=== PATIENT | female | born 1945 | race Caucasian/White ===

== ENCOUNTER → 2021-11-13 03:07 | Outpatient (CLI) | payer MEDICARE, OTHER, SELFPAY ==
[2021-11-13 10:49] LABS: SARS-CoV-2 RNA PCR Negative
== END ==
PROVIDERS: PCP Family Medicine; Visit Provider Internal Medicine Cardiovascular Disease
DX: Z01.812 Encounter for preprocedural laboratory examination (principal); Z20.822 Contact with and (suspected) exposure to COVID-19
CPT/HCPCS: C9803; U0003; U0005

== ENCOUNTER 2021-11-16 01:19 | Day surgery (SDC) | payer MEDICARE, OTHER, SELFPAY ==
[2021-11-15 16:49] VITALS: BMI 38.0
[2021-11-16] VITALS (15 sets, daily range): BP systolic 134–176; BP diastolic 68–97; PULSE 83–92; RESP 13–20; TEMP 36.2; O2SAT 97–100; BMI 37.7
--- NOTE | 2021-11-16 10:10 | WPDHPUPDATE1 ---
History and Physical Update Update Date/Time: 11/16/21 10:10 Patient was hospitalized recently with multiple bilateral acute small strokes. Carotid ultrasound showed only mild plaque. I was concerned that she may have aortic plaque or aortic fibrillation causing her multiple strokes. We tried outpatient monitoring but she was not able to tolerate the electrodes. I have recommended a transesophageal echo and, if that shows no etiology, and implantable loop recorder. History and Physical has been reviewed, including an updated exam of the patient. There are NO changes in the patient's condition. Risks, benefits, and alternatives have been discussed and questions answered. Patient agrees to proceed with procedure.
--- NOTE | 2021-11-16 10:12 | WPDMODSED ---
Moderate Sedation Note-Pt Data Patient Data Diagnosis: Patient with mild mitral and aortic stenosis as well as HTN who was hospitalized recently with multiple bilateral acute small strokes. Carotid ultrasound showed only mild plaque. I was concerned that she may have aortic plaque or aortic fibrillation causing her multiple strokes. We tried outpatient monitoring but she was not able to tolerate the electrodes. I have recommended a transesophageal echo and, if that shows no etiology, and implantable loop recorder. Present Complaint: Bilateral strokes Procedure to be performed/Plan: Conscious sedation, transesophageal echo, possible implantable loop recorder Allergies Allergy/AdvReac Type Severity Reaction Status Date / Time adhesive tape Allergy Mild Rash Verified 11/16/21 10:56 cortex Eucommiae AdvReac Gastrointestinal Verified 11/16/21 10:58 Upset Home Medications Medication Instructions Recorded Confirmed Type blood sugar diagnostic #100 each 06/24/19 11/15/21 Rx acetaminophen 500 mg tablet 500 mg PO BID tablet 08/18/20 11/15/21 History ascorbic acid (vitamin C) 1,000 mg 1 g PO BID tablet 08/18/20 11/15/21 History tablet calcium carbonate 600 mg calcium 600 mg PO BID tablet 08/18/20 11/15/21 History (1,500 mg) tablet chondroitin sulfate 600 1 tablet PO BID tablet 08/18/20 11/15/21 History mg-turmeric 125 mg tablet glucosamine HCl 1,500 mg tablet 1,500 mg PO BID tablet 08/18/20 11/15/21 History zinc acetate 25 mg (zinc) capsule 25 mg PO BID cap 08/18/20 11/15/21 History pen needle, diabetic 32 gauge x See Rx Instructions .ROUTE 12/29/20 11/15/21 Rx 32 .COMPLEX #100 syringe metoprolol succinate 50 mg 25 mg PO DAILY tablet 04/27/21 11/15/21 History tablet,extended release 24 hr potassium gluconate 595 mg (99 mg) See Rx Instructions .ROUTE 05/18/21 11/15/21 Rx tablet .COMPLEX #45 tablet clopidogrel 75 mg tablet 75 mg PO DAILY 10/23/21 11/15/21 History simvastatin 40 mg tablet 40 mg PO DAILY 10/23/21 11/15/21 History tramadol 50 mg tablet 50 mg PO Q6H PRN 10/23/21 11/15/21 History losartan 50 mg tablet 25 mg PO BID tablet 10/26/21 11/15/21 History calcium-vitamin D3 See Rx Instructions .ROUTE .COMPLEX 11/15/21 11/15/21 History insulin glargine [Lantus Solostar 8 unit SUBCUT DAILY 11/15/21 11/15/21 History U-100 Insulin] Sedation/Anesthesia: No previous sedation/anesthesia problems (including family history). FOR[facility]LY [facility] Past Medical History Medical History (Updated 11/16/21 @ 10:14 by Anna Barillas MD) Aortic stenosis Cataracts, bilateral CVA (cerebral vascular accident) Hospitalized at [facility] 10/20/2021 with confusion and dizziness. MRI showed multiple acute bilateral lacunar infarcts. Carotid ultrasound showed less than 50% stenosis, mild plaque. Diabetes Endometrial cancer Essential hypertension (Unknown) GERD (gastroesophageal reflux disease) Hyperlipidemia, unspecified Iron deficiency anemia Mitral stenosis Normal colonoscopy (~2015) Vitamin B12 deficiency Vitamin D deficiency Surgical History Surgical History History of hysterectomy for cancer Hx of tonsillectomy Family History Family History Father Patient's father is in good health Hypertension Sibling Patient's sister is in good health Patient's brother is in good health Mother Family history of malignant neoplasm of breast Son Depression Social History Social History (Updated 11/16/21 @ 10:15 by Anna Barillas MD) Social History: 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 , 1 son and 1 daughter Smoking status: Never smoker Second hand tobacco smoke exposure: Yes (at work) Alcohol intake: former Substance use: never Substance use type: does not use Living arrangements: alone Gender identity (if verbalized by the patient):
--- NOTE | 2021-11-16 12:00 | SUR.OPER ---
see moderate sedation form for sedation given - total 3mg versed and 50mcg fentanyl for VIVIANA procedure.
--- NOTE | 2021-11-16 12:29 | PM.OP ---
Procedure Note - Brief Procedure Note - Brief Date of procedure: 11/16/21 Pre-op diagnosis: tia Post-op diagnosis: Same Procedure performed: Transesophageal ECHO Insertion of a Biotronik loop recorder Description of procedure: Unremarkable procedures Anesthesia: local (And conscious sedation) Surgeon: Anna Barillas MD Condition: Stable Disposition: Observation Findings: Transesophageal echo showed no thrombus, significant aortic atheroma, or PFO. However there was a small mobile mass on the aortic valve which may be a vegetation. Checking blood cultures etc.
--- NOTE | 2021-11-16 12:30 | WPDTEECHO ---
VIVIANA TransEsophageal Echocardiogram Date of procedure: 11/16/21 Procedure Type: Transesophageal echo Diagnosis: Small bilateral strokes Indications: Patient was hospitalized in early October with multiple bilateral acute small strokes. Carotid ultrasound showed only mild plaque. I was concerned that she may have aortic plaque or aortic fibrillation causing her multiple strokes. We tried outpatient monitoring but she was not able to tolerate the electrodes. I have recommended a transesophageal echo and an implantable loop recorder. Interestingly, the patient has had multiple dental abscesses over the last 10 years, culminating in extensive dental work with a full upper dental extraction and some lower tooth extractions in June. She was given a week of antibiotic at that time. She was also treated for suspected UTI with an antibiotic in early October. She has not noted any fevers. Image Quality: Good Findings: Conscious sedation: Assessment: The patient has no history of anesthesia problems. The patient's oropharynx is clear. The patient was deemed to be a good candidate for conscious sedation. The patient had continuous hemodynamic and oximetric monitoring during the procedure. Start time: 1143 a.m. Completion time: 1158 a.m. for VIVIANA, 1218 a.m. to complete loop insertion Total conscious sedation time: 35 minutes Medications Used: Versed 3 mg, fentanyl 50 mcg IV push Trained observer: Tiffany Hernandez RN Outcome: The patient tolerated the procedure well with no complications. Procedure: After informed consent the patient had Hurricaine spray the hypopharynx. The patient had conscious sedation as described above. The transesophageal echo probe was introduced in the esophagus without difficulty. Imaging was obtained in multiplane views. Agitated saline was injected to evaluate for intracardiac shunting. The patient tolerated the procedure well with no complications. Findings: The left atrium was moderately enlarged. There is no thrombus present in the left atrium or left atrial appendage. The atrial septum appeared intact. Mitral valve annulus and the leaflets were thickened, calcified and poorly mobile consistent with a degree of mitral stenosis. No associated mobile masses seen. The left ventricle had had normal size and with mild hypertrophy, but with good contractility of all segments. The ejection fraction is estimated to be: 60 %. The aortic root was normal. The aortic valve was trileaflet, thickened and mildly calcified, and appeared minimally stenotic. There was a filamentous mobile mass on the left coronary leaflet measuring 0.8 x 0.3 cm consistent with a vegetation. The ascending aorta was normal. The aortic arch had [id number] distal atherosclerosis and descending thoracic aorta had mild atherosclerosis. No thrombi were seen. The right atrium, tricuspid valve, right ventricle, pulmonic valve and pulmonic artery were all normal. There is no pericardial effusion. When agitated saline was injected intravenously during normal respiration and cough there was no evidence of intracardiac shunting. Doppler Findings:: Pulsed, continuous and close flow Doppler studies were performed. There was mild mitral stenosis present. Mild mitral regurgitation was seen. No regurgitation of the aortic valve was noted. There was mild tricuspid regurgitation. Conclusions: Mass on the aortic valve is described above consistent with a vegetation. No associated aortic insufficiency. Mild mitral and aortic stenosis. Mild to moderate aortic atherosclerosis. No evidence of intracardiac shunting. Normal left ventricular systolic function with mild LVH, ejection fraction 60%. Moderate left atrial enlargement. Recommendations: The patient appears to have a vegetation on her aortic valve; may have a healed vegetation or perhaps an active SBE infection although she has not manifested clinical signs of active endocarditis. However, she
--- NOTE | 2021-11-16 12:33 | W.PM.PROC2 ---
Procedure Note - Detailed Date of Procedure 11/16/21 Pre-op Diagnosis tia Post-op Diagnosis Same Procedure Performed Conscious sedation Insertion of a Biotronik loop recorder Surgeon Anna Barillas MD Anesthesia Local Indications Patient was hospitalized recently with multiple bilateral acute small strokes. Carotid ultrasound showed only mild plaque. I was concerned that she may have aortic plaque or aortic fibrillation causing her multiple strokes. We tried outpatient monitoring but she was not able to tolerate the electrodes. I have recommended a transesophageal echo and, if that shows no etiology, and implantable loop recorder. H Findings Sinus rhythm Description of Procedure The patient had been previously provided with conscious sedation for her preceding transesophageal echo. The left chest was prepped in the usual fashion. She received 1% lidocaine anesthesia in the 4th intercostal space. A skin incision was made in the Biotronik loop recorder III (model [id number], serial [id number]) was inserted along the left parasternal border. R-wave sensing 4.45 mV. The skin was closed with skin adhesive and a sterile dressing applied. The patient tolerated the procedure well with no complications. Implants Biotronik loop recorder III (model [id number], serial [id number]) Estimated Blood Loss 1 Drains No Packing No Pathology None sent Complications No immediate complications Condition Stable Disposition Observation
[2021-11-16 13:12] LABS: Basophils Percent Auto 0.6 % (0.2-1.2); Eosinophils Absolute Auto 0.1 K/mm3 (0-0.3); Eosinophils Percent Auto 1.7 % (0-4.4); Hematocrit 39.5 % (37.0-47.0); Hemoglobin 12.7 g/dL (12.0-15.0); Immature Granulocyte Absolute 0.02 K/mm3 (0.00-0.031); Immature Granulocyte Percent A 0.3 % (0-0.5); Lymphocytes Absolute Auto 0.88 K/mm3 (0.9-3.2); Lymphocytes Percent Auto 12.7 % (18.3-44.2); Mean Corpuscular HGB Conc 32.2 g/dl (32-36); Mean Corpuscular Hemoglobin 29.7 pg (26-34); Mean Corpuscular Volume 92.5 fl (80-100); Mean Platelet Volume 10.6 fl (7.4-10.4); Monocytes Absolute Auto 0.5 K/mm3 (0.1-0.6); Monocytes Percent Auto 6.6 % (2.6-8.5); Neutrophils Absolute Auto 5.4 K/mm3 (1.3-6.7); Neutrophils Percent Auto 78.1 % (45.5-73.1); Platelet Count Result 163 k/mm3 (150-375); Red Blood Count 4.27 M/mm3 (4.2-5.4); Red Cell Distribution Width 13.5 % (11.5-14.5)
[2021-11-16 13:24] LABS: CRP < 0.5 mg/dL (<1.0)
[2021-11-16] MEDS: ceFAZolin SODIUM 1 GM VIAL IV PUSH (13:30)
[2021-11-16 13:41] LABS: Erythrocyte Sedimentation Rate 53 mm/hr (0-20)
--- NOTE | 2021-11-16 13:50 | SUR.PHASEII ---
Discharge instructions read to pt and son and written instructions given. Pt and son states understanding.
== END 2021-11-16 14:10 | disposition home or self-care (01) ==
PROVIDERS: PCP Family Medicine; Visit Provider Internal Medicine Cardiovascular Disease
PROC: (CPT 33285; 2021-11-16 11:30)
PROC: (CPT 93312; 2021-11-16 11:30)
DX: G45.9 Transient cerebral ischemic attack, unspecified (principal); R93.1 Abnormal findings on diagnostic imaging of heart and coronary circulation; I70.0 Atherosclerosis of aorta; I05.0 Rheumatic mitral stenosis; I35.0 Nonrheumatic aortic (valve) stenosis; I11.9 Hypertensive heart disease without heart failure; E11.9 Type 2 diabetes mellitus without complications; E78.5 Hyperlipidemia, unspecified; D50.9 Iron deficiency anemia, unspecified; K21.9 Gastro-esophageal reflux disease without esophagitis; E55.9 Vitamin D deficiency, unspecified; E53.8 Deficiency of other specified B group vitamins; Z79.02 Long term (current) use of antithrombotics/antiplatelets; Z79.4 Long term (current) use of insulin
CPT/HCPCS: 33285; 36415; 85025; 85652; 86140; 87040; 93312; 93320; 93325; C1764; J0690; J2250; J3010; J7040

== ENCOUNTER 2023-06-12 08:45 | Outpatient (CLI) | payer MEDICARE, OTHER, SELFPAY ==
--- NOTE | 2023-06-12 12:11 | WPDPFTINT ---
PFT Procedure Performed PFT Procedure Performed Plethysmography (Lung Vol) Diffusing Cap (DLCO) Flow Vol Loop Spirometry w/o Bronchodil PFT Interpretation This is a pulmonary function test with spirometry, plethysmography and diffusing capacity. The test was performed and results interpreted in accordance with the 2019 and 2005 ATS/ERS Task Force guidelines respectively using the Global Lung Function Initiative-2012 reference equations. Patient demonstrated good effort and cooperation. Reproducibility criteria were met. The quality of the spirometry maneuver was Grade B. Findings: Spirometry: The contour the inspiratory and expiratory flow tracing is normal. The FVC is 1.87 L, 82% predicted. The FEV1 is 1.49 L, 84% predicted. The FEV1: FVC ratio is 80%. Plethysmography: The total lung capacity is 3.34 L, 75% predicted. The functional residual capacity is 1.76 L, 70% predicted. The residual volume is 1.47 L, 70% predicted. Diffusion capacity: The diffusing capacity unadjusted for hemoglobin and carboxyhemoglobin is 11.1, 61% predicted. The diffusing capacity adjusted for alveolar volume is 3.99, 91% predicted. Impression: There is a mild restrictive ventilatory abnormality with a normal FEV1. The spirometry is normal without evidence of an obstructive abnormality. The diffusing capacity unadjusted for hemoglobin and carboxyhemoglobin is mildly decreased and normalizes when adjusted for alveolar volume. There are no prior studies for comparison
== END 2023-06-12 08:46 | disposition home or self-care (01) ==
LOC: ANHPFT 08:46
PROVIDERS: PCP Family Medicine
DX: J84.9 Interstitial pulmonary disease, unspecified (principal); R94.2 Abnormal results of pulmonary function studies
CPT/HCPCS: 94375; 94726; 94729

== ENCOUNTER 2025-01-12 10:15 | Outpatient (RCR) | payer MEDICARE, OTHER, SELFPAY ==
--- NOTE | 2024-11-18 13:42 | PTOPEVAL1 ---
Assessment and note entered by Laure John, PT Evaluation Information Assessment Status Evaluation Diagnosis Low back pain unspec M54.5 ICD-10 Condition Codes (PT) Pain in low back M54.50,Abnormalities of gait and mobility R26.9,Weakness R53.1 Subjective Information Reports fell backwards a couple months ago but didn't have any pain at that time. Reports low back pain at the pant line has been going on 5-6 weeks. States has progressed over time. Wasn't keeping her from doing anything, but some activities will attempt an activity and feel a sharp pain and will have to cease. Reports this happened with different activities and inconsistently. Right side is worst than left most of the time, and sometimes will go around the hip but not down the legs. Salon pas and ice seems to help. Sitting doesn't seem to help pain. Doesn't really lay out straight , sitting on the couch will fall asleep sitting up . Cleaning, hauling groceries, moving furniture ( push or pull not carry) will increase pain and it will take a few hours to go away or will be minimal Reported Pain Level Pain Score 2: Self Report Assessment PT Clinical Summary Pt presents with complaints of back pain that has worsened over the last few months. Pt has conflicting reports at times about severity of and causation related to pain which may suggest pt being a poor historian. Evaluation shows a significant leg length discrepancy, flexibility deficits, ROM deficits, and weakness of lumbopelvic musculature. Pt will benefit from physical therapy in order to address deficits, educate patient, and improve pain to allow maximal functional independence. Plan of Care Interventions Electrical Stimulation,Gait Training,Hot Pack/Cold Pack,Manual Therapy,Neuro Re-education,Patient/ Caregiver Education,Therapeutic Activities, Therapeutic Exercise,Self-Care/Home Management, Ultrasound,Other Other Interventions Bracing, Taping PT Services Indicated Yes Treatment Frequency and 1-2x weekly x 16 visits Duration These treatments will address the objective and functional deficits as defined above. The patient will be advanced safely and appropriately in order for the patient to progress towards his/her prior level of function. Additional exercises will be introduced and as well as a comprehensive home exercise program upon discharge, if needed, ?to ensure carryover of functional gains achieved in the clinic. This treatment plan has been reviewed and agreement upon by the patient.
--- NOTE | 2024-11-18 13:42 | OPREHPOC ---
Outpatient Therapy Plan of Care This is a Multidisciplinary Plan of Care that may contain components documented by all disciplines (PT, OT, and ST.) PT Problem 1 PT Problem #1 Knowledge Deficit PT Goal 1 Goal / Goal Update Pt will be independent in HEP Pt will verbalize understanding of diagnosis and prognosis Target Visit 8 PT Problem 2 PT Problem #2 Impaired Gait PT Goal 1 Goal / Goal Update Pt will demonstrate improved gait pattern with erect posture with or without AD for 150 ft Target Visit 8 PT Goal 2 Goal / Goal Update Pt will report ability to ambulate as far as she wishes without pain Target Visit 16 PT Problem 3 PT Problem #3 Impaired Range of Motion PT Goal 1 Goal / Goal Update Pt will demonstrate lumbar AROM 75% in all planes besides extension Target Visit 16 PT Problem 4 PT Problem #4 Impaired Strength PT Goal 1 Goal / Goal Update Pt will demonstrate 3/5 strength gluteus medius and deny raymundo Target Visit 8 PT Goal 2 Goal / Goal Update Pt will demonstrate 3+/5 or greater BLE glutes for improved lumbar support and stability Target Visit 16
--- NOTE | 2024-12-17 11:01 | OPREHPOC ---
Outpatient Therapy Plan of Care This is a Multidisciplinary Plan of Care that may contain components documented by all disciplines (PT, OT, and ST.) PT Problem 1 PT Problem #1 Knowledge Deficit PT Goal 1 Goal / Goal Update Pt will be independent in HEP Pt will verbalize understanding of diagnosis and prognosis Target Visit 8 PT Problem 2 PT Problem #2 Impaired Gait PT Goal 1 Goal / Goal Update Pt will demonstrate improved gait pattern with erect posture with or without AD for 150 ft Target Visit 8 PT Goal 2 Goal / Goal Update Pt will report ability to ambulate as far as she wishes without pain Target Visit 16 PT Problem 3 PT Problem #3 Impaired Range of Motion PT Goal 1 Goal / Goal Update Pt will demonstrate lumbar AROM 75% in all planes besides extension Target Visit 16 Progress Met PT Problem 4 PT Problem #4 Impaired Strength PT Goal 1 Goal / Goal Update Pt will demonstrate 3/5 strength gluteus medius and deny raymundo Target Visit 8 Progress Met PT Goal 2 Goal / Goal Update Pt will demonstrate 3+/5 or greater BLE glutes for improved lumbar support and stability Target Visit 16
--- NOTE | 2024-12-17 11:01 | PTOPPROG ---
Assessment and note entered by Laure John, PT Evaluation Information Assessment Status Progress Diagnosis Low back pain unspec M54.5 ICD-10 Condition Codes (PT) Pain in low back M54.50,Abnormalities of gait and mobility R26.9,Weakness R53.1 Subjective Information Pt reports back has a little bit of stiffness and soreness but not that it slows me down. Reports no more sharp pains in the low back. Reports pain is mostly in the back and is not going to hips anymore. Right continues to be a little worse than left but not extreme Pt reports groceries are uncomfortable but nothing else seems to be a problem. The discomfort resolves with sitting 5 minutes or less . Pt reports heel lift application about every other day Assessment PT Clinical Summary Pt has attended therapy 8 sessions for her back/ hip pain and gait abnormalities. She also has a history of knee arthritis she reports she has not had shots for recently. She reports not feeling any improvement since starting but also reports no longer having sharp pains, that when she does have discomfort it resolves quickly upon sitting, and her pain does not go into her hips any longer. However pt is also a poor historian and has also noted herself to be inconsistent with HEP and therapist direction at home. She does show mild increases in lumbar range, improved quality of gait with less hip drop, and increased hip strength, but cont to have significant flexibility deficits in the hip flexors L>R. Pt will benefit from continued therapy in order to continue addressing deficits and improve overall physical function. Plan of Care Interventions Electrical Stimulation,Gait Training,Hot Pack/Cold Pack,Manual Therapy,Neuro Re-education,Patient/ Caregiver Education,Therapeutic Activities, Therapeutic Exercise,Self-Care/Home Management, Ultrasound,Other Other Interventions Bracing, Taping PT Services Indicated Yes Treatment Frequency and 1-2x weekly x 8 visits Duration These treatments will address the objective and functional deficits as defined above. The patient will be advanced safely and appropriately in order for the patient to progress towards his/her prior level of function. Additional exercises will be introduced and as well as a comprehensive home exercise program upon discharge, if needed, ?to ensure carryover of functional gains achieved in the clinic. This treatment plan has been reviewed and agreement upon by the patient.
--- NOTE | 2024-12-24 09:29 | PCPTNOTE ---
Pt called and cancelled appt today. no reason given
--- NOTE | 2025-01-12 10:55 | PTOPDC ---
Assessment and note entered by Laure John, PT Evaluation Information Assessment Status Discharge Diagnosis Low back pain unspec M54.5 ICD-10 Condition Codes (PT) Pain in low back M54.50,Abnormalities of gait and mobility R26.9,Weakness R53.1 Subjective Information Pt reports stiffness but states is not painful. Carrying in groceries is uncomfortable but states is not necessarily pain. Is able to do this by herself. Pt reports is not wearing heel lift every day. Was working on increasing to another layer. Pt reports is doing her exercises about 4x/week Self perceived improvement: 30% Reports no pain at all would be 100% improved. Is not the worst part anymore and is nagging. Would also like to be able to walk a little faster rather than being hunched over. Reported Pain Level Pain Score 0: Self Report Assessment PT Clinical Summary Pt has attended therapy consistently for her low back pain, chronic in nature. Pt has been noted through sessions to have poor carry over, difficulty understanding pain values, difficulty following instructions at times, and has also at one visit presented to the wrong facility and hospital chain for her therapy appt due to cognitive deficit. Pt reports low disability scores with the Oswestry stating minimal pain with function, then also reports only 30% improvement overall due to her pain and function. She demonstrates slightly improved strength in gluteals, but cont to have significant tightness in the hip flexors especially. She has met all therapy related goals accept one for her gait pattern which is largely effected by her knees. Pt is also about 50% compliant with HEPs and heel lifts as directed. Pt appears to have met max benefit with physical therapy at this time, largely due to poor carry over and understanding of the plan of care. She may benefit from referral to [facility] or audio visual specialist for improved pain goals. Plan of Care PT Services Indicated No
== END 2025-01-12 11:06 | disposition home or self-care (01) ==
LOC: ANHHIPT 10:15
PROVIDERS: PCP Physician Assistant Medical; Visit Provider Physician Assistant Medical
DX: M54.50 Low back pain, unspecified (principal)
CPT/HCPCS: 97014; 97110; 97112; 97140; 97162; 97530; 97750; G0283

== ENCOUNTER 2025-02-24 13:51 | Emergency (ER) | payer MEDICARE, OTHER, SELFPAY ==
--- NOTE | ~2025-02-24 | XR_ITS ---
XR chest 2V Ordering provider: Bonnie Sol APRN History: 79 years Female with . cough x6 months, wheezing . Comparison: None. FINDINGS: MEDIASTINUM: The cardiac silhouette is slightly enlarged. Postoperative changes in the mediastinum. C ongestive kavitha. LUNGS: No effusions or pneumothorax. Bilateral interstitial thickening suggestive of pneumonitis. Pul monary edema is not excluded. OTHER: No free air under the diaphragm. IMPRESSION: Cardiomegaly with cardiac decompensation and pulmonary edema. Pneumonitis is not excluded. Reviewed, dictated and finalized at location A. IMPRESSION: Cardiomegaly with cardiac decompensation and pulmonary edema. Pneumonitis is no t excluded.
--- OUTSIDE RECORDS SUMMARY | 2025-02-24 13:54 | XMS_ITS ---
Author Name Auto Generated, Auto Generated Organization [facility] ice Address [address] [place] [address] Phone [phone] Care Team Providers Care Research Technologist Name Role Phone Robert Peters Unavailable [phone] Anish Woods Unavailable Functional Status Mental Status Allergies and Intolerances Medications Problems Reason for Referral Past Medical History
--- OUTSIDE RECORDS SUMMARY | 2025-02-24 13:54 | XMS_ITS ---
Author Name Auto Generated, Auto Generated Organization [facility] Address [address] [place] [address] Phone [phone] Care Team Providers Care Door Liner Helper Name Role Phone Robert Peters Unavailable Anish Woods Unavailable Functional Status No Results Mental Status No Results Allergies and Intolerances Name Onset Date Reaction Severity Latex (Allergy) SatFeb 27 21:19:00 EDT 2022 adhesive (Allergy) SatFeb 27 21:19:00 EDT 2022 Medications Medication Directions Start Date End Date polyethylene glycoL 3350 17 gram/dose oral powder 17 GRAMS POWDER (GRAM) Oral PRN 1 Time Daily Indication: CONSTIPATION (Stir & Dissolve 17 grams (1 capful) in 4 - 8 oz of liquid, then drink as directed) SatFeb 28 12:08:00 2022Mar 09 01:00:00 2022 senna 8.6 mg tablet 1 TAB TABLET Oral AR N 2 Times Daily Indication: CONSTIPATION SatFeb 28 12:08:00 2022Mar 09 01:00:00 T 2022 traMADoL 50 mg tablet 25mg TABLET Oral P RN 3 Times Daily Indication: PAIN (0.5 TAB = 25MG) SatFeb 28 12:10:00 2022Mar 09 01:00:00 2022 TUBErsoL 5 tub. unit/0.1 mL intradermal injection solution 0.1 ml VIAL (ML) Intradermal 1 Time Weekly for 2 Weeks Indication: admit 1st injection on admission, then one week after. Read between 48 and 72 hours SatFeb 28 07:00:00 EDT 2022Mar 09:00:00 EDT 2022 TUBErsoL 5 tub. unit/0.1 mL intradermal injection solution Read Results VIAL (ML) Other 1 Time Weekly for 2 Weeks Indication: admit Read results between 48-72 hours after 1st and 2nd (1 week apart). If positive do chest x-ray. SatMar 02 07:00:00 EDT 2022Mar 09:00:00 EDT 2022 acetaminophen 500 mg tablet 2 tabs TABLE T Oral PRN Every 6 Hours Indication: Pain *(2 tabs = 1000mg)*(Do NOT exceed 3gm/day APAP from all sources)*(Use Caution with other APAP products)* SatFeb 27:15: EDT 2022Mar 09:: EDT 2022 aspirin 81 mg tablet,delayed release 1 TAB TABLET, DELAYED RELEASE (ENTERIC COATED) Oral 1 Time Daily Indication: HEART HEALTH SatFeb 27:: EDT 2022Mar 09:00:00 EDT 2022 atorvastatin 80 mg tablet 1 TAB TABLET O ral Hour Of Sleep Indication: CHOLESTEROL SatFeb 27:15: EDT 2022Mar 09:00:00 EDT 2022 calcium carbonate 600 mg-vitamin D3 5 mcg (200 unit) tablet 2 TABS TABLET Oral 1 Time Daily Indication: SUPPLEMENT SatFeb 27:15: ED2022Mar 09:00:00 ED2022 cholecalciferol (vitamin D3) 125 mcg (5,000 unit) capsule 1 CAP CAPSULE Oral 2 Times Daily Indication: SUPPLEMENT SatFeb 27:15: ED2022Mar 09:00:00 EDT 2022 furosemide 20 mg tablet 1 TAB TABLET Ora l 1 Time Daily Indication: FLUID RETENTION SatFeb 27:15: EDT 2022Mar 09:00:00 EDT 2022 Glucagon (HCl) Emergency Kit 1 mg solution for injection 1 MG VIAL (EA) Intramuscular PRN Every 30 Minutes Indication: LOW BLOOD SUGAR SatFeb 27:15:00 EDT 2022Mar 09:00:00 EDT 2022 Lantus U-100 Insulin 100 unit/mL subcutaneous solution 4 UNITS VIAL (ML) Subcutaneous Hour Of Sleep Indication: DIABETES SatFeb 27:15: EDT 2022Mar 09:00:00 EDT 2022 metoprolol succinate ER 25 mg tablet,extended release 24 hr 3 TABS TABLET, EXTENDED RELEASE 24 HR Oral 1 Time Daily Indication: BLOOD PRESSURE (3 TABS = 75MG) SatFeb 27:15:00 EDT 2022Mar 09 01:00:00 EDT 2022 polyethylene glycoL 3350 17 gram/dose oral powder 17 GRAMS POWDER (GRAM) Oral 1 Time Daily Indication: CONSTIPATION (Stir & Dissolve 17 grams (1 capful) in 4 - 8 oz of liquid, then drink as directed) SatFeb 28 01:00:00 EDT 2022 [facility] Feb 28 12:09:00 EDT 2022 potassium chloride ER 10 mEq tablet,extended release 1 TAB TABLET, EXTENDED RELEASE Oral 1 Time Daily Indication: SUPPLEMENT SatFeb 27:15:00 EDT 2022Mar 09 01:00:00 EDT 2022 ramelteon 8 mg tablet 1 TAB TABLET Oral PRN Hour Of Sleep Indication: DIFFICULTY FALLING ASLEEP SatFeb 27:15:00 EDT 2022Mar 09:00:00 EDT 2022 senna 8.6 mg tablet 1 TAB TABLET Oral 2 Times Daily Indication: CONSTIPATION SatFeb 27 19:15:00 EDT 2022u Feb 28 12:09:00 EDT 2022 traMADoL 50 mg tablet 0.5 TAB TABLET Ora l PRN Indication: PAIN (0.5 TAB = 25MG) SatFeb 27:15:00 EDT 2022u Feb 28 12:11:00 EDT 2022 Problems Active Concerns * Presence of prosthetic heart valve* Code: * Start Date: SatFeb 27 00:00:00 EDT 2022 * End Date: * Text: * Presence of aortocoronary bypass graft* Code: * Start Date: SatFeb 27 00:00:00 EDT 2022 * End Date: * Text: * Rheumatic mitral stenosis* Code: * Start Date: SatFeb 27 00:00:00 EDT 2022 * End Date: * Text: * Encounter for surgical aftercare following surgery on the circulatory system* Code: * Start Date: SatFeb 27 00:00:00 EDT 2022 * End Date: * Text: * Dysphagia, unspecified* Code: * Start Date: SatFeb 27 00:00:00 EDT 2022 * End Date: * Text: * Obesity, unspecified* Code: * Start Date: SatFeb 27 00:00:00 EDT 2022 * End Date: * Text: * Body mass index [BMI] 36.0-36.9, adult* Code: * Start Date: SatFeb 27 00:00:00 EDT 2022 * End Date: * Text: * Personal history of transient ischemic attack (TIA), and cerebral infarction without residual deficits* Code: * Start Date: SatFeb 27 00:00:00 EDT 2022 * End Date: * Text: * Tachycardia, unspecified* Code: * Start Date: SatFeb 27 00:00:00 EDT 2022 * End Date: * Text: * Personal history of malignant neoplasm of other parts of uterus* Code: * Start Date: SatFeb 27 00:00:00 EDT 2022 * End Date: * Text: * Acquired absence of both cervix and uterus* Code: * Start Date: SatFeb 27 00:00:00 EDT 2022 * End Date: * Text: * Acute postprocedural respiratory failure* Code: * Start Date: SatFeb 27 00:00:00 EDT 2022 * End Date: * Text: * Anuria and oliguria* Code: * Start Date: SatFeb 27 00:00:00 EDT 2022 * End Date: * Text: * Type 2 diabetes mellitus with hyperglycemia* Code: * Start Date: SatFeb 27 00:00:00 EDT 2022 * End Date: * Text: * Acute posthemorrhagic anemia* Code: * Start Date: SatFeb 27 00:00:00 EDT 2022 * End Date: * Text: * Pulmonary hypertension, unspecified* Code: * Start Date: SatFeb 27 00:00:00 EDT 2022 * End Date: * Text: * Atherosclerotic heart disease of grayling coronary artery without angina pectoris* Code: * Start Date: SatFeb 27 00:00:00 EDT 2022 * End Date: * Text: * Rheumatic tricuspid insufficiency* Code: * Start Date: SatFeb 27 00:00:00 EDT 2022 * End Date: * Text: * Delirium due to known physiological condition* Code: * Start Date: SatFeb 27 00:00:00 EDT 2022 * End Date: * Text: * Acute post-thoracotomy pain* Code: * Start Date: SatFeb 27 00:00:00 EDT 2022 * End Date: * Text: * Weakness* Code: * Start Date: SatFeb 27 00:00:00 EDT 2022 * End Date: * Text: * Unsteadiness on feet* Code: * Start Date: SatFeb 27 00:00:00 EDT 2022 * End Date: * Text: * Hypertensive heart disease with heart failure* Code: * Start Date: SatFeb 27 00:00:00 EDT 2022 * End Date: * Text: * Chronic diastolic (congestive) heart failure* Code: * Start Date: SatFeb 27 00:00:00 EDT 2022 * End Date: * Text: * Nonrheumatic aortic (valve) stenosis with insufficiency* Code: * Start Date: SatFeb 27 00:00:00 EDT 2022 * End Date: * Text: * Hypokalemia* Code: * Start Date: SatFeb 27 00:00:00 EDT 2022 * End Date: * Text: * Cardiac murmur, unspecified* Code: * Start Date: SatFeb 27 00:00:00 EDT 2022 * End Date: * Text: * Unspecified osteoarthritis, unspecified site* Code: * Start Date: SatFeb 27 00:00:00 EDT 2022 * End Date: * Text: * Idiopathic gout, unspecified site* Code: * Start Date: SatFeb 27 00:00:00 EDT 2022 * End Date: * Text: * Mixed hyperlipidemia* Code: * Start Date: SatFeb 27 00:00:00 EDT 2022 * End Date: * Text: * Personal history of pulmonary embolism* Code: * Start Date: SatFeb 27 00:00:00 EDT 2022 * End Date: * Text: * Personal history of other venous thrombosis and embolism* Code: * Start Date: SatFeb 27 00:00:00 EDT 2022 * End Date: * Text: * Psoriasis, unspecified* Code: * Start Date: SatFeb 27 00:00:00 EDT 2022 * End Date: * Text: * Slow transit constipation* Code: * Start Date: SatFeb 27 00:00:00 EDT 2022 * End Date: * Text: * intermediate frame tender (current) use of aspirin* Code: * Start Date: SatFeb 27 00:00:00 EDT 2022 * End Date: * Text: * intermediate frame tender (current) use of insulin* Code: * Start Date: SatFeb 27 00:00:00 EDT 2022 * End Date: * Text: Reason for Referral Past Medical History
--- OUTSIDE RECORDS SUMMARY | 2025-02-24 13:54 | XMS_ITS | Encounter Summary ---
Author Organization [facility] Address [address] [place] [address] Care Team Providers Care Arts And Crafts Teacher Name Role Phone Sona Collier MD Primary Care Provider [phone] Eliane Roger DO Primary Care Provider [phone] Cachorro Lovell MD Primary Care Provider [phone] Janina Cruz PA-C Primary Care Provider [phone] Encounter Details Date Type Department Care Team (Late st Contact Info) Description 04/10/2016 Abstract [facility] [address] [place], [place] [id number] , Kristopher Azul MD Social History Tobacco Use Types Packs/Day Years Used Date Smoking Tobacco: Never Assessed Comments Unknown Sex and Gender Information Value Date Recorded Sex Assigned at Female 08/26/2024 8:59 AM NOTE TAKER Legal Sex Female 7:07 PM CDT Gender Identity Not on file Sexual Orientation Not on file documented as of this encounter Plan of Treatment Upcoming Encounters Date Type Department Care Team (Late st Contact Info) Description 08/16/2025 1:00 PM NOTE TAKER Office Visit [place] [place] [facility] [address] [place] [address] Viviana Steele, JOAN [address] [place], [place] [address] [place], [place] [id number] documented as of this encounter Visit Diagnoses Not on filedocumented in this encounter Additional Health Concerns Infection Onset Date Last Indicated Resolved Time COVID-19 Rule Out 10/17/2022 10/17/2022 10/17/2022 5:16 PM NOTE TAKER COVID-19 Rule Out 10/17/2022 10/18/2022 10/18/2022 12:17 PM NOTE TAKER COVID-19 Rule Out 10/15/2023 10/15/2023 10/15/2023 1:11 PM NOTE TAKER COVID-19 Rule Out 07/23/2024 07/23/2024 07/23/2024 12:50 PM NOTE TAKER documented as of this encounter Care Teams Arts And Crafts Teacher Relationship Specialty Start Date End Date Sona Collier MD PCP - General FAMILY PRACTICE 04/09/19 09/07/20 Eliane Roger DO PCP - General FAMILY PRACTICE 09/08/20 10/16/22 Cachorro Lovell MD [address] [place] [id number] PCP - General FAMILY PRACTICE 10/17/22 01/26/24 Janina Cruz PA-C [address] [place] [id number] PCP - General PHYSICIAN FEED BLENDER 01/27/24 documented as of this encounter
--- OUTSIDE RECORDS SUMMARY | 2025-02-24 13:54 | XMS_ITS ---
Author Organization [facility] Address [address] [place] [address] Care Team Providers Care Topstitcher Zigzag Name Role Phone Maurice Ojeda MD Unavailable [phone] Anna Barillas MD Unavailable [phone] Luis Miguel Perkins MD Unavailable [phone] Cachorro Lovell MD Primary Care Provider [phone] Steven Odonnell MD Unavailable [phone] Sandra Sheppard MD Unavailable [phone] Miscellaneous, Not In File Unavailable Unava ilable Active Problems Problem Noted Date Diagnosed Date Aortic valve stenosis, nonrheumatic 03/27/2023 Hyperlipidemia associated with type 2 diabetes m ellitus 03/27/2023 S/P mitral valve replacement with bioprosthetic valve 03/27/2023 Aortic atherosclerosis 03/27/2023 Obesity (BMI 35.0-39.9 without comorbidity) 12/2022 Assessment & Plan (02/14/2023 5:51 PM CDT): BMI = 36.33 -Fall precautions -Consider bariatric equipment History of COVID-19 09/19/2022 H/O bacterial endocarditis 03/13/[address] scan of lung 03/13/2022 History of uterine cancer 11/18/2021 Status post placement of implantable loop record er 11/17/2021 Overview (11/17/2021): [employer]ron[employer] Biomonitor III Loop Recorder. Dx; Stroke. DOI 11/16/2021-[facility]. logtrustronik remote home monitoring. History of multiple strokes 11/08/2021 Nonrheumatic mitral valve stenosis 04/12/2021 Diabetes 05/04/2016 Type 2 diabetes mellitus 05/04/2016 Assessment & Plan (02/26/2023 1:05 PM CDT): Placed on 4 units lantus Blood sugars 113-219 Poor oral intake- added supplements Malignant neoplasm of endometrium (CMS/HCC) 04/13 Cancer Staging:Pathologic stage from 05/24/2016:FIGO Stage IB(pT1b, pN0, cM0) - Unsigned Clinical stage from 12/25/2017: cN0, cM0 - Unsigned Essential hypertension 05/04/2016 Assessment & Plan (02/26/2023 1:06 PM CDT): Home meds: metoprolol XL, losartan, imdur, lasix -Increased metoprolol 25mg BID with parameters -SBP stable 110-150 Current Treatment and Therapy Plans No current plan information found. Past Treatment and Therapy Plans No past plan information found. Radiation Treatments * Course C1_Pelvis_7.3.18 02/26/2018 - 04/11/2018 Treatment Period Energy Fraction Dose Fractions Total Dose Plans Planned PELVIS # 02/26/2018 - 04/11/2018 160 32 / 5,120 Reference Points Delivered Pelvis 02/26/2018 - 04/11/2018 5,120 Lifetime Dose Tracking * Chemical Lifetime Dose Automatic Entry Manual Entr y Air kerma at the reference point (Ka,r) 382 mGy 0 mGy 382 mGy DLP 1,892 mGycm 1,892 mGycm 0 mGycm Resolved Problems Problem Noted Date Diagnosed Date Resolved Date Tachycardia 02/22/2023 03/27/2023 Assessment & Plan (02/25/2023 12:17 PM CDT): Appears SR-ST on monitor, rate 90-110s Reports intermittent dizziness Obtain 12 lead ECG with atrial tracing to rule out atrial flutter Encouraged to drink Continue diuretic Increase metoprolol as tolerated Dysphagia 02/21/2023 03/27/2023 Assessment & Plan (02/21/2023 12:37 PM CDT): On mechanical diet Speech ordered for re-evaluation Tricuspid regurgitation 02/13/2023 0710/2022 Assessment & Plan (02/14/2023 5:51 PM CDT): VIVIANA here shows mild to moderate TR -OR tomorrow 02/15 Stroke (cerebrum) 02/13/2023 03/27/2023 Assessment & Plan (02/25/2023 12:16 PM CDT): History of stroke 10/2021 thought cardioembolic in setting of culture negative endocarditis and 10/2022 -no residual deficits -walks with a cane -reports some memory loss which she attributes to the last stroke - no plavix needed per Neurology- just ASA Severe mitral valve stenosis 01/30/2023 03/27/2023 Assessment & Plan (02/26/2023 1:07 PM CDT): S/p MVR (Bio) 02/15/23 Chest tubes removed Plan to pull wires today Sternal wound vac removed, incision looks good 2 v CXR 02/21 =small raymundo pl effusions, with atelectasis Diuretics as tolerated- lasix 40 po daily Continue bowel regimen Continue ASA, statin, and BB Lovenox for DVT prophylaxis TTE 02/23: Normal LV size, normal systolic function by EF (58%), reduced longitudinal strain (-13.4%). Mild LAE. Normal RV size and function. Normal RA. Normal IVC. Normal size aortic root. Bio MVR structure poorly visualized, mean gradient 7 mmHg, no MR, no PVL. Mild . Mild TR. Consider VIVIANA if clinical suspicion remains high for endocarditis Repeat CXR today Plan for DC to SNF tomorrow CHO (dyspnea on exertion) 09/19/2022 Abnormal pulmonary finding 09/19/2022 0 03/27/2023 Morbid (severe) obesity due to excess calories 09/19/2022 03/27/2023 Atherosclerosis of both carotid arteries 03/13/2022 03/27/2023 COVID-19 11/19/2021 09/19/2022 Bacterial endocarditis 11/18/202109/19 Hyperlipidemia 11/08/2021 03/27/2023 Assessment & Plan (02/13/2023 4:54 PM CDT): Home med: atorvastatin -continue home atorvastatin -low fat/low chol diet Aortic stenosis 04/12/2021 03/27/2023 Assessment & Plan (02/25/2023 12:07 PM CDT): VIVIANA here shows mild aortic stenosis No surgical intervention on aortic valve TTE 02/23 performed Anemia 05/04/2016 03/27/2023 Endometrial cancer determine d by uterine biopsy 05/04/2016 01/31/2018 Mitral valve insufficiency a nd aortic valve insufficiency 03/27/2023
--- OUTSIDE RECORDS SUMMARY | 2025-02-24 13:54 | XMS_ITS | Encounter Summary ---
Author Organization [facility] Address [address] [place] [address] Care Team Providers Care Hospice Volunteer Coordinator Name Role Phone Janina Cruz PA-C Primary Care Provider [phone] Reason for Visit * Reason Onset Date Comments Concerns 01/11/2025 Encounter Details Date Type Department Care Team (Late st Contact Info) Description 01/11/[address] [address] Manuela Murillo RN Concerns Social History Tobacco Use Types Packs/Day Years Used Date Smoking Tobacco: Never Smokeless Tobacco: Never Alcohol Use Standard Drinks/Week Comments Not Currently 0 (1 standard drink = 0.6 oz pur e alcohol) SOCIALLY Humiliation, Afraid, Rape, and Kick questionnair e Answer Date Recorded Within the last year, have y ou been afraid of your partner or ex-partner? No 10/20/2022 Within the last year, have y ou been humiliated or emotionally abused in other ways by your partner or ex-partner? No Within the last year, have y ou been kicked, hit, slapped, or otherwise physically hurt by your partner or ex-partner? No 10/20/2022 Within the last year, have y ou been raped or forced to have any kind of sexual activity by your partner or ex-partner? No 10/20/2022 Social Connection and Isolat ion Panel [NHANES] Answer Date Recorded In a typical week, how many times do you talk on the phone with family, friends, or neighbors? More than three times a week 10/20/2022 How often do you get togethe r with friends or relatives? More than three times a week 10/20/2022 How often do you attend chur or sikh services? More than 4 times per year 10/20/2022 Do you belong to any clubs o r organizations such as judaism groups, unions, fraternal or athletic groups, or school groups? Yes 10/20/2022 How often do you attend meet ings of the clubs or organizations you belong to? More than 4 times per year 10/20/2022 Are you , , di vorced, , never , or living with a partner? 10/20/2022 AUDIT-C Answer Date Recorded Q1: How often do you have a drink containing alcohol? Never 10/20/2022 Q2: How many drinks containi ng alcohol do you have on a typical day when you are drinking? Patient does not drink Q3: How often do you have si x or more drinks on one occasion? Never 10/20/2022 Overall Financial Resource Strain (CARDIA) Answe r Date Recorded How hard is it for you to pa y for the very basics like food, housing, medical care, and heating? Not hard at all 10/20/2022 PHQ-2 Answer Date Recorded Patient Health Questionnaire-2 Score 0 12/20/2023 [facility] Occupat ional Health - Occupational Stress Questionnaire Answer Date Recorded Do you feel stress - tense, restless, nervous, or anxious, or unable to sleep at night because your mind is troubled all the time - these days? Not at all 10/20/2022 Exercise Vital Sign Answer Date Recorde d On average, how many days pe r week do you engage in moderate to strenuous exercise (like a brisk walk)? 0 days 10/20/2022 On average, how many minutes do you engage in exercise at this level? 0 min 10/20/2022 Hunger Vital Sign Answer Date Recorded Within the past 12 months, y ou worried that your food would run out before you got the money to buy more. Never true 10/21/19 23 Within the past 12 months, t he food you bought just didn't last and you didn't have money to get more. Never true 10/20/2022 PRAPARE - Transportation Answer Date Re corded In the past 12 months, has l ack of transportation kept you from medical appointments or from getting medications? No 10/10 In the past 12 months, has l ack of transportation kept you from meetings, work, or from getting things needed for daily living? No 10/20/2022 Housing Stability Vital Sign Answer Samir e Recorded In the last 12 months, was t here a time when you were not able to pay the mortgage or rent on time? No 10/20/2022 In the last 12 months, how many places have you lived? 2 10/20/2022 In the last 12 months, was t here a time when you did not have a steady place to sleep or slept in a chcf (including now)? Yes 10/20/2022 Comments No Sex and Gender Information Value Date Recorded Sex Assigned at Female 08/26/2024 8:59 AM ACQUISITION EDITOR Legal Sex Female 7:07 PM CDT Gender Identity Not on file Sexual Orientation Not on file documented as of this encounter Functional Status * Are you deaf or do you have serious difficulty hearing Answer Date of Assessment Author Status No 10/24/2022 4:23 PM CDT Harini Ovalles R N Active * Are you blind or do you have serious difficulty seeing, even when wearing glasses? Answer Date of Assessment Author Status No 10/24/2022 4:23 PM CDT Harini Ovalles R N Active * Do you have serious difficulty walking or climbing stairs? Answer Date of Assessment Author Status Yes 10/24/2022 4:23 PM CDT Harini Ovalles R N Active * Do you have difficulty dressing or bathing? Answer Date of Assessment Author Status Yes 10/24/2022 4:23 PM CDT Harini Ovalles R N Active * Because of a physical, mental, or emotional condition, do you have difficulty doing errands alone such as visiting a doctor's office or shopping? Answer Date of Assessment Author Status Yes 10/20/2022 5:00 PM ACQUISITION EDITOR Steven Galicia RN Active documented as of this encounter Mental Status * Because of a physical, mental, or emotional condition, do you have serious difficulty concentrating, remembering, or making decisions? Answer Entry Date Author Status No 10/24/2022 4:23 PM CDT Josr, Shayne Mckeon Active documented in this encounter Progress Notes * Manuela Murillo RN - 01/11/2025 3:08 PM CDT ILR battery depleted per Ana Stevenson RN at [facility], I left a VM with my CB #. * Manuela Murillo RN - 01/11/2025 3:07 PM CDT ----- Message from Adrienne De La Fuente MA sent at 01/08/2025 3:10 PM CDT ----- FYI on Biotron[employer] ILR, no remotes on patient appt desk and not in our [employer]. documented in this encounter Plan of Treatment Upcoming Encounters Date Type Department Care Team (Late st Contact Info) Description 08/16/2025 1:00 PM ACQUISITION EDITOR Office Visit [facility] [address] [place] [id number] Viviana Steele, HOUSE CARPENTER HELPER [address] [facility] [address] [place] [address] documented as of this encounter Goals Goal Patient Goal Type Associated Problems Recent Progress Patient-Stated? Author Health - patient able to perform ADLs independently General No Indu George RN documented as of this encounter Visit Diagnoses Not on filedocumented in this encounter Care Teams Hospice Volunteer Coordinator Relationship Specialty Start Date End Date Janina Cruz PA-C [address] [place], [place] [id number] PCP - General PHYSICIAN DEPUTY DIRECTOR 01/27/24 documented as of this encounter
--- OUTSIDE RECORDS SUMMARY | 2025-02-24 13:54 | XMS_ITS | Clinical Summary ---
Author Organization [facility] Address [address] [place] [address] Care Team Providers Care Silk Screener Name Role Phone Janina Cruz PA-C Primary Care Provider [phone] Allergies Active Allergy Reactions Criticality Noted Date Comments Latex Rash Low 08/27/2020 Medications acetaminophen 500 MG tablet Take 1 tablet (500 mg total) by mouth 2 (two) times daily as needed. Active Turmeric (QC TUMERIC COMPLEX OR) Take by mouth 2 (two) times a day. Active vitamin D3 (CHOLECALCIFER OL) 25 mcg tablet Take 0.5 tablets (12.5 mcg total) by mouth daily. 90 tablet 3 Active aspirin EC (ECOTRIN) 81 MG tablet Take 1 tablet (81 mg total) by mouth daily. X 21 days 21 tablet 3 Active furosemide (LASIX) 20 MG tablet Take 1 tablet (20 mg total) by mouth daily. 90 tablet 2 3 Active albuterol sulfate HFA 108 (90 Base) MCG/ACT inhaler Inhale 2 puffs into the lungs every 6 (six) hours as needed for Wheezing. 17 g 4 Active fluticasone furoate-vilant noman (BREO ELLIPTA) 100-25 MCG/ACT inhalerIndicat ions:ILD (interstitial lung disease) (CMS/HCC HHS/HCC) Inhale 1 puff into the lungs daily. Rinse and spit after use 90 each 3 4 Active mycophenolate EC (MYFORTIC) 180 MG tablet Take 1 tablet (180 mg total) by mouth 2 (two) times daily. Active Multiple Vitamins-John Day als (ICAPS) Tab Take 1 tablet by mouth 2 (two) times a day. Active atorvastatin (LIPITOR) 80 MG tablet take 1 tablet by mouth every day 90 tablet 1 4 Active Additional Information Patient not taking.Reported on 02/02/2025 glimepiride (AMARYL) 1 MG tablet Take 1 tablet (1 mg total) by mouth every morning before breakfast. Active metoprolol succinate ER (TOPROL-XL) 50 MG 24 hr tablet Take 1.5 tablets (75 mg total) by mouth daily. NEW DOSE 135 tablet 1 5 Active potassium chloride CR (K-TAB) 10 MEQ Tab CR tablet TAKE 1 TABLET BY MOUTH EVERY DAY 90 tablet 5 Active Additional Information Patient taking differently: 15 mEqOral Daily, Reported on 02/01/2025 donepezil (ARICEPT) 10 MG Tab 10 MG ORALLY EVERY DAY AT BEDTIME 5 Active escitalopram (LEXAPRO) 5 MG tablet 5 mg orally daily 5 Active traMADol (ULTRAM) 50 MG tablet Take 1 tablet (50 mg total) by mouth every 6 (six) hours as needed. 5 Active metFORMIN ER (GLUCOPHAGE-XR ) 500 MG 24 hr tablet Take 1 tablet (500 mg total) by mouth daily with breakfast. 5 Active insulin glargine 100 UNIT/ML injection (VIAL) Inject 6 Units into the skin every morning. 02/03/20 25 Discontin ued(Alter damaso therapy) clopidogrel (PLAVIX) 75 MG tablet Take 1 tablet (75 mg total) by mouth daily. 90 tablet 2 3 02/03/20 25 Discontin ued(Thera py completed ) colchicine 0.6 MG tablet Take 1 tablet (0.6 mg total) by mouth daily. 30 tablet 5 02/03/20 25 Discontin ued(Thera py completed ) metFORMIN ER (GLUCOPHAGE-XR ) 500 MG 24 hr tablet Take 1 tablet (500 mg total) by mouth 2 (two) times daily. 5 02/02/20 25 Discontin ued(Sig Adjustmen t) Active Problems Problem Noted Date Diagnosed Date Interstitial pneumonia with autoimmune features ([facility]) 09/09/2023 History of mitral valve repl acement with bioprosthetic valve 09/09/2023 CVA (cerebral vascular accident) ([facility]/ [facility]) 10/20/2022 PNA (pneumonia) 10/17/2022 CHO (dyspnea on exertion) 09/19/2022 History of COVID-19 09/19/2022 Morbid (severe) obesity due to excess calories 0 09/19/[address] scan of lung 03/13/2022 Atherosclerosis of both carotid arteries 022 H/O bacterial endocarditis 03/13/2022 Status post placement of implantable loop record er 11/17/2021 Overview (10/20/2022): [employer] Bi[employer]itor III Loop Recorder. Dx; Stroke. DOI 11/16/2021-[facility]. [employer] remote home monitoring. Hyperlipidemia associated wi th type 2 diabetes mellitus ([facility]) 11/08/2021 Confusion 10/20/2021 Hypertension associated with diabetes ([facility]) 05/04/2016 Resolved Problems Problem Noted Date Diagnosed Date Resolved Date Chest pain in adult 02/24/2021 09/09/19 24 Nonrheumatic mitral valve stenosis 02/24/2021 09/09/2023 Encounters Date Type Department Care Team Description 02/01/2025 1:06 PM CDT - 02/01/2025 11:59 PM CDT Hospital Encounter [facility] [address] [place] [address] Samara Elkins MD Discharge Disposition: Home or Self Care (Routine Discharge) 02/01/2025 1:00 PM CDT Office Visit [facility] [address] [place] [phone] Samara Elkins MD Neurologic Problem; Mitral Valve Disorders 02/01/2025 Results Follow-Up [facility] [address] [place] [phone] Tami Schulte RN XR CHEST PA+LAT 02/01/2025 Travel 01/11/2025 Telephone [facility] [address] [place] [address] Manuela Murillo RN Concerns 01/08/2025 Telephone [facility] [address] [place] [address] Adrienne De La Fuente MA Information 12/22/2024 8:45 AM CDT - 12/22/2024 11:59 PM CDT Hospital Encounter [facility] [id number] [place] [id number] Flor Anderson MD Discharge Disposition: Home or Self Care (Routine Discharge) 12/22/2024 Orders Only [facility] [address] [place] [id number] Flor Anderson MD 12/22/2024 Travel 12/01/2024 8:45 AM CDT - 12/01/2024 11:59 PM CDT Hospital Encounter [facility] [id number] [place] [address] Flor Anderson MD Discharge Disposition: Home or Self Care (Routine Discharge) 12/01/2024 Orders Only [facility] [address] [place] [address] Flor Anderson MD 12/01/2024 Travel from Last 3 Months Immunizations Immunization Administration Dates Next Due Pneumococcal (Pneumovax 23) 06/11/2018 Pneumococcal (Prevnar 13) 05/27/2017 Family History Medical History Relation Comments Cancer Mother Heart Disease Paternal Grandfather Hypertension Sister Relation Status Comments Father Mother Paternal Grandfather Sister Social History Tobacco Use Types Packs/Day Years Used Date Smoking Tobacco: Never Smokeless Tobacco: Never Tobacco Cessation:Counseling Given: Not Answered Alcohol Use Standard Drinks/Week Comments Not Currently [...] week 10/20/2022 How often do you attend [facility] or lutheran services? More than 4 times per year 10/20/2022 Do you belong to any clubs o r organizations such as latter-day groups, unions, fraternal or athletic groups, or [...] Recorded Patient Health Questionnaire-2 Score 0 12/20/2023 [facility] - Occupational Stress [...] place to sleep or slept in a nursing home (including now)? Yes 10/20/2022 Comments No Sex and Gender Information Value Date Recorded Sex Assigned at Female 08/26/2024 8:59 AM [employer] Sex Female 7:07 PM CDT Gender Identity Not on file Sexual Orientation Not on file Last Filed Vital Signs Vital Sign Reading Time Taken Comments Blood Pressure 116/71 11/20/2024 1:44 AM CDT Pulse 81 11/20/2024 1:44 AM CDT Temperature 36.7 C (98.1 F) 11/20/2024 1:44 AM CDT Respiratory Rate 16 11/20/2024 1:44 AM CDT Oxygen Saturation 97% 11/20/2024 1:44 AM CDT Inhaled Oxygen Concentration - - Weight 88.9 kg (196 lb) 02/01/2025 12:18 PM CDT Height 152.4 cm (5') 02/01/2025 12:18 PM CDT Body Mass Index 38.28 02/01/2025 12:18 PM CDT Plan of Treatment Upcoming Encounters Date Type Department Care Team (Late st Contact Info) Description 08/16/2025 1:00 PM [employer] [facility] [address] [place] [phone] Viviana Steele FNP [id number] [place] [address] Health Maintenance Due Date Last Done Comments Kidney Health Evaluation 1945 COVID-19 Vaccine (#1) 12/29/1950 Diabetes: Retinopathy Eye Exam 1963 Hepatitis C 1963 DTaP, Tdap and Td Vaccines (1 - Tdap) 1965 Zoster Vaccines (1 of 2) 1964 Annual Medicare Wellness Visit 12/29/2011 Dexa Scan (General) 12/29/2011 RSV Immunization or 60+ Years (1 - 1-dose 75+ series) 2021 Hemoglobin A1C 09/27/2023 03/27/2023, 02/10, 02/13/2023, Additional history exists ASCVD LDL 10/19/2023 10/18/2022, 0704/2022, 10/21/2021, Additional history exists Lipid Panel 02/14/2024 02/13/2023, 03/0 04/2023, 02/27/2022, Additional history exists PHQ-2 (Physician [place]) 08/12/2024 12/20/2023 Pneumococcal Vaccine: 50+ Years Completed 06/11/2018, 05/27/2017 AAA SCREENING Completed 10/26/2024, 11/11, 10/25/2022, Additional history exists Meningococcal B Vaccine Aged Out No l onger eligible based on patient's age to complete this topic Meningococcal Vaccine Aged Out No lee rubin eligible based on patient's age to complete this topic RSV Immunizations Under 20 Months Aged Out No longer eligible based on patient's age to complete this topic Goals Goal Patient Goal Type Associated Problems Recent Progress Patient-Stated? Author Health - patient able to perform ADLs independently General Indu Goetz, RN Medical Devices Implanted Type Area Production Tester Device Identifier Shelf Expiration Date Model / Serial / Lot Implantable Loop Recorder-Biot[employer] meagan-Mri- Implanted:Qty: 1 on 11/16/2021 Implantable Loop Recorder Procedures Procedure Name Priority Date/Time Associated Diagnosis Comments XR CHEST PA+LAT Routine 02/01/2025 1:16 PM CDT Shortness of breath Interstitial lung disease ([facility] HHS/HCC) S/P MVR (mitral valve replacement) BASIC METABOLIC PANEL Routine 12/22/2024 9:07 AM CDT ILD (interstitial lung disease) ([facility]) High risk medication use Elevated serum creatinine CBC W/DIFF AUTOMATED Routine 12/01/2024 8:57 AM CDT Interstitial lung disease ([facility] HHS/HCC) Encounter for long-term (current) drug use COMPREHENSIVE METABOLIC PANEL Routine 12/01/2024 8:57 AM CDT Interstitial lung disease ([facility]) Encounter for long-term (current) drug use CT ABD+PEL KIDNEY STONE STAT 10/26/2024 9:18 PM CDT HEMOGLOBIN, GLYCOSYLATED Routine 03/04/2023 LIPID PANEL Routine 10/18/2022 5:22 AM [employer] from Last 3 Months or Most Recently Relevant to Health Maintenance Results * XR CHEST PA+LAT (02/01/2025 1:16 PM CDT) Anatomical Region Laterality Modality Chest Radiographic Cele ging 02/01/2025 2:08 PM CDT Impressions 02/01/2025 2:08 PM CDT IMPRESSION: Stable chest Ordered By: SAMARA ELKINS Interpreted By: Josr Hendrickson MD, 02/01/2025 2:08 PM Narrative 02/01/2025 2:08 PM CDT [facility] [address] [place] [address] 2 VIEWS OF THE CHEST Clinical history: Shortness of breath Comparison: July 23, 2024 2 views of the chest demonstrate the cardiac silhouette to be within normal limits for size and appears stable. Sternotomy changes are again noted. Diffuse interstitial prominence throughout the lungs is unchanged. No areas of consolidation are seen Procedure Note Josr Hendrickson MD - 02/01/2025 [facility] [address] [place] [address] 2 VIEWS OF THE CHEST Clinical history: Shortness of breath Comparison: July 23, 2024 2 views of the chest demonstrate the cardiac silhouette to be withinnormal limits for size and appears stable. Sternotomy changes are againnoted. Diffuse interstitial prominence throughout the lungs is unchanged.No areas of consolidation are seen IMPRESSION: Stable chest Ordered By: SAMARA ELKINS Interpreted By: Josr Hendrickson MD, 02/01/2025 2:08 PM us Samara Elkins MD GENERAL IMAGING Final Resul t * (ABNORMAL) BASIC METABOLIC PANEL (12/22/2024 9:07 AM CDT) GLUCOSE 143(H) 70 - 99 MG/DL 12/22/2024 9:36 AM CDT [facility] BUN 34(H) 7 - 18 MG/DL 12/22/2024 9:36 AM CDT [facility] CREATININE S/P/B 0.99 0.55 - 1.02 MG/DL 12/22/2024 9:36 AM CDT [facility] ([facility]) [facility] SODIUM S/P/B 140 136 - 145 MMOL/L 12/22/2024 9:36 AM CDT [facility] POTASSIUM S/P/B 4.2 3.5 - 5.1 MMOL/L 12/22/2024 9:36 AM CDT [facility] CHLORIDE S/P/B 105 100 - 108 MMOL/L 12/22/2024 9:36 AM CDT [facility] CO2 28.0 21 - 32 MMOL/L 12/22/2024 9:36 AM CDT [facility] CALCIUM S/P/B 9.8 8.5 - 10.1 MG/DL 12/22/2024 9:36 AM CDT [facility] ANION GAP 7.0 5 - 15 MMOL/L 12/22/2024 9:36 AM T [facility] BUN CREATININE RATIO 34.3(H) 6 - 26 12/22/2024 9:36 AM T [facility] GFR ESTIMATE 59(L) >90 ML/MIN/1.7 3 M2 12/22/2024 9:36 AM T [facility] Comment: NOTE: eGFR is not calculated for patients <18 years of age. This is an estimated GFR calculation using the new CKD EPI creatinine equation without race and so does not require a correction factor for race. This estimated GFR should not be used for calculating drug doses. 12/22/2024 9:07 AM CDT us Flor Anderson MD LABORATORY Final Result [facility] [address] [place] [address], * (ABNORMAL) COMPREHENSIVE METABOLIC PANEL (12/01/2024 8:57 AM CDT) GLUCOSE 142(H) 70 - 99 MG/DL 12/01/2024 9:41 AM [facility] BUN 32(H) 7 - 18 MG/DL 12/01/2024 9:41 AM [facility] CREATININE S/P/B 1.30(H) 0.55 - 1.02 MG/DL 12/01/2024 9:41 AM [facility] SODIUM S/P/B 144 136 - 145 MMOL/L 12/01/2024 9:41 AM [facility] POTASSIUM S/P/B 4.2 3.5 - 5.1 MMOL/L 12/01/2024 9:41 AM [facility] CHLORIDE S/P/B 106 100 - 108 MMOL/L 12/01/2024 9:41 AM [facility] CO2 28.5 21 - 32 MMOL/L 12/01/2024 9:41 AM [facility] CALCIUM S/P/B 9.7 8.5 - 10.1 MG/DL 12/01/2024 9:41 AM [facility] BILIRUBIN TOTAL S/P/B 0.3 0.2 - 1.2 MG/DL 12/01/2024 9:41 AM [facility] TOTAL PROTEIN S/P/B 7.9 6.4 - 8.2 G/DL 12/01/2024 9:41 AM [facility] ALBUMIN S/P/B 3.4 3.4 - 5.0 G/DL 12/01/2024 9:41 AM [facility] AST 14(L) 15 - 37 U/L 12/01/2024 9:41 AM [facility] ALT 19 14 - 55 U/L 12/01/2024 9:41 AM [facility] ALKALINE PHOSPHATASE S/P/B 83 50 - 136 U/L 12/01/2024 9:41 AM CDT [facility] ANION GAP 9.5 5 - 15 MMOL/L 12/01/2024 9:41 AM CDT [facility] BUN CREATININE RATIO 24.6 6 - 26 12/01/2024 9:41 AM CDT [facility] A/G RATIO 0.8(L) 1.0 - 2.0 RATIO 12/01/2024 9:41 AM CDT [facility] GFR ESTIMATE 42(L) >90 ML/MIN/1.7 3 M2 12/01/2024 9:41 AM CDT [facility] Comment: NOTE: eGFR is not calculated for patients <18 years of age. This is an estimated GFR calculation using the new CKD EPI creatinine equation without race and so does not require a correction factor for race. This estimated GFR should not be used for calculating drug doses. 12/01/2024 8:57 AM CDT us Flor Anderson MD LABORATORY Final Result [facility] [address] [place] [address], [place] [phone] * (ABNORMAL) CBC W/DIFF AUTOMATED (12/01/2024 8:57 AM CDT) WBC 8.25 4.4 - 11.0 x10'3/uL 12/01/2024 9:09 AM CDT [facility] RBC 4.71 4.50 - 5.10 x10'6/uL 12/01/2024 9:09 AM CDT [facility] HGB 13.7 12.3 - 15.3 G/DL 12/01/2024 9:09 AM CDT [facility] HCT 42.3 35.9 - 44.6 % 12/01/2024 9:09 AM CDT [facility] MCV 89.8 80.0 - 96.0 FL 12/01/2024 9:09 AM CDT [facility] MCH 29.1 25.3 - 30.9 PG 12/01/2024 9:09 AM T [facility] MCHC 32.4 31.0 - 34.1 G/DL 12/01/2024 9:09 AM T [facility] RDW 15.7(H) 12.4 - 15.1 % 12/01/2024 9:09 AM T [facility] PLT 266 151 - 353 x10'3/uL 12/01/2024 9:09 AM T [facility] MPV 9.7 9.6 - 12.0 FL 12/01/2024 9:09 AM [facility] RBC MORPHOLOGY NORMAL 12/01/2024 9:09 AM [facility] PLT MORPH. NORMAL 12/01/2024 9:09 AM T [facility] WBC MORPHOLOGY NORMAL 12/01/2024 9:09 AM T [facility] LYMPHOCYTES % 14.8(L) 15.8 - 45.0 % 12/01/2024 9:09 AM T [facility] NEUTROPHILS % 71.6 42.1 - 71.9 % 12/01/2024 9:09 AM T [facility] MONOCYTES % 9.0 5.7 - 12.5 % 12/01/2024 9:09 AM T [facility] EOSINOPHILS 3.6 0.0 - 5.6 % 12/01/2024 9:09 AM T [facility] BASOPHILS 0.6 0.0 - 1.3 % 12/01/2024 9:09 AM CDT [facility] ABS. NEUTROPHILS 5.91 1.40 - 6.00 x10'3/uL 12/01/2024 9:09 AM CDT [facility] IMMATURE GRANS % 0.4 0.0 - 0.5 % 12/01/2024 9:09 AM CDT [facility] ABS. LYMPHOCYTES 1.22 0.80 - 4.70 x10'3/uL 12/01/2024 9:09 AM CDT [facility] 12/01/2024 8:57 AM CDT us Flor Anderson MD LABORATORY Final Result [facility] [address] [facility] [place] [address], [place] [phone] * CT ABD+PEL KIDNEY STONE (10/26/2024 9:18 PM CDT) Anatomical Region Laterality Modality Abdomen Computed Tomogra phy 10/26/2024 9:22 PM CDT Impressions 10/26/2024 9:25 PM CDT IMPRESSION: 1. Bulky left-sided nonobstructing kidney stone. No evidence of right kidney stone Ordered By: ABRAN CASIANO Interpreted By: Josr Hendrickson MD, 10/26/2024 9:22 PM Narrative 10/26/2024 9:25 PM CDT [facility] [address] [facility] [place] [address] CT ABDOMEN AND PELVIS WITHOUT CONTRAST Clinical history: Right flank pain. Technique: Helical images of the abdomen and pelvis were obtained without contrast. A dose lowering technique was used for this procedure, which may include, but is not limited to, dose reduction technique, automated exposure control, the use of iterative reconstruction, and ALARA (As Low As Reasonably Achievable) / Image Gently techniques. Comparison: without prior studies available for comparison. FINDINGS: Images of the lower thorax demonstrate the visualized portion of the heart to be normal in size. Dense annular and a prosthetic mitral valve is noted. No pericardial effusion is seen. The lung bases are clear. Images of the abdomen demonstrate the overall size and morphology of the liver to be within normal limits. No hepatic lesions are observed. No ascites is seen. The gallbladder is normally distended. Several tiny stones are noted within the dependent lumen. The pancreas, spleen, and adrenal glands appear grossly normal. The kidneys are normal in overall size. No stones are evident on the right. A large nonobstructing stone is seen within the lower pole of the left kidney. This measures 9 x 5 mm in greatest dimensions. No additional stones are noted. No hydronephrosis is present. Images of the pelvis demonstrate the urinary bladder to appear normal. The uterus is surgically absent. A small hiatal hernia is noted, otherwise, stomach has a normal appearance. The small bowel is within normal limits throughout. The terminal ileum and appendix appear normal. The colon is mildly redundant but is otherwise within normal limits. Procedure Note Josr Hendrickson MD - 10/26/2024 [facility] [address] [facility] [place] [address] CT ABDOMEN AND PELVIS WITHOUT CONTRAST Clinical history: Right flank pain. Technique: Helical images of the abdomen and pelvis were obtained withoutcontrast. A dose lowering technique was used for this procedure, which mayinclude, but is not limited to, dose reduction technique, automatedexposure control, the use of iterative reconstruction, and ALARA (As LowAs Reasonably Achievable) / Image Gently techniques. Comparison: without prior studies available for comparison. FINDINGS: Images of the lower thorax demonstrate the visualized portion of the heartto be normal in size. Dense annular and a prosthetic mitral valve isnoted. No pericardial effusion is seen. The lung bases are clear. Images of the abdomen demonstrate the overall size and morphology of theliver to be within normal limits. No hepatic lesions are observed. Noascites is seen. The gallbladder is normally distended. Several tinystones are noted within the dependent lumen. The pancreas, spleen, andadrenal glands appear grossly normal. The kidneys are normal in overall size. No stones are evident on theright. A large nonobstructing stone is seen within the lower pole of theleft kidney. This measures 9 x 5 mm in greatest dimensions. No additionalstones are noted. No hydronephrosis is present. Images of the pelvis demonstrate the urinary bladder to appear normal. Theuterus is surgically absent. A small hiatal hernia is noted, otherwise, stomach has a normalappearance. The small bowel is within normal limits throughout. Theterminal ileum and appendix appear normal. The colon is mildly redundantbut is otherwise within normal limits. IMPRESSION: 1. Bulky left-sided nonobstructing kidney stone. No evidence of rightkidney stone Ordered By: ABRAN CASIANO Interpreted By: Josr Hendrickson MD, 10/26/2024 9:22 PM Abran Casiano MD CT Final Resul t * HEMOGLOBIN, GLYCOSYLATED (03/04/2023) [facility] HGB A1C 6.6 % us Default History Genericprovider LABORATORY Final Result * (ABNORMAL) LIPID PANEL (10/18/2022 5:22 AM [employer]) [facility] CHOLESTEROL 131 <200.0 MG/DL 10/18/2022 6:33 AM [facility] TRIGLYCERIDES 75 <150 MG/DL 10/18/2022 6:33 AM [facility] HDL 36(L) >40.0 MG/DL 10/18/2022 6:33 AM [facility] LDL (CALCULATED) 80 <100 MG/DL 10/19/19 6:33 AM [facility] NON HDL CHOLESTEROL 95 <130 MG/DL 10/18 6:33 AM [facility] CHOL/HDL RATIO 3.6 0.0 - 4.5 10/18/2022 6:33 AM [facility] VLDL CALCULATION 15 5 - 55 MG/DL 10/18/2022 6:33 AM [employer] [facility] LIPID INTERPRETATION 10/18/2022 6:33 AM [employer] [facility] Comment: [facility] CONCENSUS REPORT RECOMMENDATIONS: ADULT CHILD LOW RISK: CHOLESTEROL <200 <170 TRIGLYCERIDE <150 --- HDL >=60 --- LDL <100 <110 BORDERLINE: CHOLESTEROL 200-239 170-199 TRIGLYCERIDE 150-199 --- HDL 40-59 --- LDL 100-159 110-129 HIGH RISK: CHOLESTEROL >=240 >=200 TRIGLYCERIDE >=200 --- HDL <40 --- LDL >=160 >=130 10/18/2022 5:22 AM [employer] Eliane Iverson NP LABORATORY Final Resul t [facility] [address] [place] [address], from Last 3 Months or Most Recently Relevant to Health Maintenance Insurance MEDIC[employer] Advance Directives * Full Code (Latest Code Status on File) Date Activated Date Inactivated Comments 10/20/2022 4:18 PM 10/30/2022 7:36 PM * Full Code Date Activated Date Inactivated Comments 10/17/2022 1:20 PM 10/20/2022 4:07 PM * Full Code Date Activated Date Inactivated Comments 10/20/2021 9:56 AM 10/21/2021 8:29 PM Care Teams Silk Screener Relationship Specialty Start Date End Date Janina Cruz PA-C [address] [place] [address] [address] [place] [address] PCP - General PHYSICIAN CHUTE BUILDER 01/27/24
--- OUTSIDE RECORDS SUMMARY | 2025-02-24 13:54 | XMS_ITS | Encounter Summary ---
Author Organization [facility] Address [address] [place] [address] Care Team Providers Care Shot Hole Driller Name Role Phone AcaciaEliane Primary Care Provider [phone] Cachorro Lovell MD Primary Care Provider +[phone] Janina Cruz PA-C Primary Care Provider + [phone] Encounter Details Date Type Department Care Team (Late Contact Info) Description 02/28/2021 Abstract [facility] [address] Ciara Recinos MA Social History Tobacco Use Types Packs/Day Years Used Date Smoking Tobacco: Never Smokeless Tobacco: Never Alcohol Use Standard Drinks/Week Comments Not Currently 0 (1 standard drink = 0.6 oz pur e alcohol) SOCIALLY Comments No Sex and Gender Information Value Date Recorded Sex Assigned at Female 08/26/2024 8:59 AM [employer] Legal Sex Female 7:07 PM CDT Gender Identity Not on file Sexual Orientation Not on file COVID-19 Exposure Response Date Recorded In the last month, have you been in contact with someone who was confirmed or suspected to have Coronavirus / COVID-19? Unable to assess 02/23/2021 1:43 PM CDT documented as of this encounter Plan of Treatment Upcoming Encounters Date Type Department Care Team (Late Contact Info) Description 08/16/2025 1:00 PM [employer] SUPERVISOR Office Visit [facility] [address] [place] [phone] Viviana Steele, SPLITTER TENDER [address] [facility] [address] [place] [address] documented as of this encounter Procedures Procedure Name Priority Date/Time Associated Diagnosis Comments COMPREHENSIVE METABOLIC PANEL Routine 04/26/2021 LIPID PANEL Routine 04/26/2021 HEMOGLOBIN, GLYCOSYLATED Routine 04/26/2021 CBC (OUTSIDE LAB) Routine 10/29/2020 FREE T3 Routine 10/29/2020 COMPREHENSIVE METABOLIC PANEL Routine 10/29/2020 HEMOGLOBIN, GLYCOSYLATED Routine 10/29/2020 THYROXINE, FREE (FT4) Routine 10/29/2020 THYROID STIM HORMONE TSH Routine 10/29/2020 VITAMIN D, 25 OH Routine 10/29/2020 documented in this encounter Results * HEMOGLOBIN, GLYCOSYLATED (04/26/2021) HGB A1C 7.1 % 04/26/2021 [facility] Final Result * (ABNORMAL) COMPREHENSIVE METABOLIC PANEL (04/26/2021) SODIUM S/P/B 142 POTASSIUM S/P/B 4.2 CO2 27 CHLORIDE S/P/B 104 GLUCOSE 115 mg/dL CALCIUM S/P/B 9.5 BUN 12 CREATININE S/P/B 0.65 0.5 - 1.0 EGFR AFR. AMER. 87 <=90 EGFR NON-AFR. AMER. 101(A) <=90 ALKALINE PHOSPHATASE S/P/B 86 ALT 29 AST 26 BILIRUBIN TOTAL S/P/B 0.6 ALBUMIN S/P/B 3.9 3.5 - 5.0 TOTAL PROTEIN S/P/B 7.6 GLOBULIN 3.7 04/26/2021 [facility] Final Result * LIPID PANEL (04/26/2021) CHOLESTEROL 191 HDL 45 TRIGLYCERIDES 95 NON HDL CHOLESTEROL 146 LDL (CALCULATED) 126 04/26/2021 [facility] Final Result * HEMOGLOBIN, GLYCOSYLATED (10/29/2020) HGB A1C 7.4 % 10/29/2020 [facility] Final Result * VITAMIN D, 25 OH (10/29/2020) VITAMIN D 25 HYDROXY S/P/B 65 10/29/2020 [facility] Final Result * FREE T3 (10/29/2020) FREE T3 3.2 10/29/2020 [facility] Final Result * THYROID STIM HORMONE, TSH (10/29/2020) TSH 1.82 10/29/2020 [facility] Final Result * THYROXINE, FREE (FT4) (10/29/2020) FREE T4 1.1 10/29/2020 [facility] Final Result * CBC (OUTSIDE LAB) (10/29/2020) WBC 6.0 HGB 13.8 HCT 41.4 PLT 269 10/29/2020 [facility]-OUTSIDE/ABSTRACTED Final Result * COMPREHENSIVE METABOLIC PANEL (10/29/2020) SODIUM S/P/B 139 POTASSIUM S/P/B 4.3 CO2 27 CHLORIDE S/P/B 103 GLUCOSE 155 mg/dL CALCIUM S/P/B 10 BUN 21 CREATININE S/P/B 0.81 0.5 - 1.0 EGFR AFR. AMER. 84 <=90 EGFR NON-AFR. AMER. 72 <=90 ALKALINE PHOSPHATASE S/P/B 97 ALT 37 AST 32 BILIRUBIN TOTAL S/P/B 0.4 ALBUMIN S/P/B 4.0 3.5 - 5.0 TOTAL PROTEIN S/P/B 7.7 GLOBULIN 3.7 10/29/2020 [facility] Final Result documented in this encounter Visit Diagnoses Not on filedocumented in this encounter Additional Health Concerns Infection Onset Date Last Indicated Resolved Time COVID-19 Rule Out 10/17/2022 10/17/2022 10/17/2022 5:16 PM [employer] COVID-19 Rule Out 10/17/2022 10/18/2022 10/18/2022 12:17 PM [employer]PER[employer]OR COVID-19 Rule Out 10/15/2023 10/15/2023 10/15/2023 1:11 PM [employer]PER[employer]OR COVID-19 Rule Out 07/23/2024 07/23/2024 07/23/2024 12:50 PM [employer]PER[employer]OR documented as of this encounter Care Teams Shot Hole Driller Relationship Specialty Start Date End Date Eliane Roger DO PCP - General FAMILY PRACTICE 09/08/20 10/16/22 Cachorro Lovell MD [address] [place] [address] PCP - General FAMILY PRACTICE 10/17/22 01/26/24 Janina Cruz PA-C [facility] [place] [address] PCP - General PHYSICIAN SCREENING TECH 01/27/24 documented as of this encounter
--- OUTSIDE RECORDS SUMMARY | 2025-02-24 13:54 | XMS_ITS | Referral Summary ---
Author Organization [facility] al Address [address] [place] [address] Care Team Providers Care Investor Relations Coordinator Name Role Phone Maurice Ojeda MD Unavailable [phone] Anna Barillas MD Unavailable [phone] Luis Miguel Perkins MD Unavailable [phone] Cachorro Lovell MD Primary Care Provider [phone] Steven Odonnell MD Unavailable [phone] Sandra Sheppard MD Unavailable [phone] Miscellaneous, Not In File Unavailable Unava ilable Encounters Date Type Department Care Team Description 02/02/2025 Telephone [facility] Rheumatology [address] [facility] 5th [place] [address] [place] [address] Flor Anderson MD Medical Records Request 01/29/2025 10:34 AM CDT - 01/29/2025 11:59 PM CDT Hospital Encounter [facility] [address] [place] [address] ILD (interstitial lung disease) (HCC); High risk medication use Discharge Disposition: Discharge to home or self care 01/29/2025 10:15 AM CDT Lab [facility] Endocrinology Metabolism and Lipid [address] [facility] 5th [place] [address] [place] [address] ILD (interstitial lung disease) ([facility]); High risk medication use 01/29/2025 9:30 AM CDT Office Visit [facility] Rheumatology [facility] [facility] 5th [place] [address] [place] [address] ILD (interstitial lung disease) ([facility]) (Primary Dx); High risk medication use; Osteoarthritis of both knees, unspecified osteoarthritis type; Low back pain, unspecified back pain laterality, unspecified chronicity, unspecified whether sciatica present 12/08/2024 Telephone [facility] Rheumatology [facility] [facility] [address] [place] [address] [place] [address] Flor Anderson MD from Last 3 Months Allergies Active Allergy Reactions Criticality Noted Date Comments Adhesive Rash Medium Latex Rash Medium 02/04/2018 Medications traMADol (ULTRAM) 50 mg tablet Take 0.5 tablets (25 mg total) by mouth as needed 0 9 Active cholecalciferol (VITAMIN D-3) 5,000 unit capsule Take 1 capsule (5,000 Units total) by mouth daily Active atorvastatin (LIPITOR) 80 mg tablet Take 1 tablet (80 mg total) by mouth daily at bedtime 3 Active aspirin 81 mg enteric coated tablet Take 1 tablet (81 mg total) by mouth daily Active glucagon 1 mg kit Inject 1 mL (1 mg total) into the muscle as instructed every 30 (thirty) minutes as needed (blood glucose less than 70 mg/dL AND no IV access AND unable to take PO glucose/juice.) 3 Active Additional Information Patient not taking.Reported on 01/29/2025 acetaminophen 500 mg capsule Take 2 capsules (1,000 mg total) by mouth every 6 (six) hours as needed for pain or headaches 30 tablet 3 Active metoprolol XL (TOPROL-XL) 25 mg extended release tablet Take 3 tablets (75 mg total) by mouth daily 90 tablet 11 3 Active Additional Information Patient not taking.Reported on 01/29/2025 furosemide (LASIX) 40 mg tablet Take 1 tablet (40 mg total) by mouth daily 30 tablet 3 Active BD Rachel 2nd Gen Pen Needle 32 gauge x /32 needle daily 3 Active potassium chloride ER 10 mEq CR tablet Take 1 tablet/capsule (10 mEq total) by mouth daily 3 Active nystatin powder Apply topically 2 (two) times a day 4 Active furosemide (LASIX) 20 mg tablet Take 1 tablet (20 mg total) by mouth daily 3 Active metoprolol XL (TOPROL-XL) 50 mg extended release tablet Take 1 tablet (50 mg total) by mouth daily 3 Active donepeziL (ARICEPT) 10 mg tablet 10 MG ORALLY EVERY DAY AT BEDTIME 5 Active escitalopram (LEXAPRO) 5 mg tablet 5 MG ORALLY DAILY 5 Active glimepiride (AMARYL) 1 mg tablet Take 0.5 tablets (0.5 mg total) by mouth daily Active metFORMIN XR (GLUCOPHAGE XR) 500 mg 24 hr tablet Take 1 tablet (500 mg total) by mouth 2 (two) times a day [address] (MYFORTIC) 180 mg EC tabletIndicatio ns:ILD (interstitial lung disease) (HCC) Take 1 tablet (180 mg total) by mouth 2 (two) times a day 180 tablet 1 5 025 Active calcium carbonate-vit D3-min 600 mg calcium- 200 unit tablet Take by mouth 2 tablets daily 025 Discontin ued(Thera py completed ) insulin glargine (LANTUS) 100 unit/mL vial for injectionIndica tions:Diabetes Mellitus Inject 4 Units under the skin nightly 10 mL 3 025 Discontin ued(Thera py completed ) azithromycin (ZITHROMAX) 250 mg tablet TAKE 2 TABLETS BY MOUTH TODAY, THEN TAKE 1 TABLET DAILY FOR 4 DAYS DIRECTED 4 025 Discontin ued(Thera py completed ) nitrofurantoin monohydrate (MACROBID) 100 mg capsule TAKE 1 CAPSULE BY MOUTH EVERY 12 HOURS FOR 5 DAYS MUST ADMINISTER WITH A MEAL/FOOD 3 025 Discontin ued(Thera py completed ) phenazopyridine (PYRIDIUM) 100 mg tablet TAKE 1 TABLET BY MOUTH THREE TIMES A DAY NEEDED FOR PAIN 3 025 Discontin ued(Thera py completed ) predniSONE (DELTASONE) 20 mg tablet TAKE 2 TABLETS BY MOUTH EVERY DAY FOR 5 DAYS 4 025 Discontin ued(Thera py completed ) sulfamethoxazol e-trimethoprim (BACTRIM DS) 800-160 mg per tablet TAKE 1 TABLET ORALLY TWICE A DAY FOR 7 DAYS 3 025 Discontin ued(Thera py completed ) LANTUS 100 unit/mL (3 mL) pen for injection INJECT 4 UNITS UNDER THE SKIN DAILY 3 025 Discontin ued(Thera py completed ) mycophenolate sodium DR (MYFORTIC) 180 mg EC tabletIndicatio ns:ILD (interstitial lung disease) (HCC) Take 1 tablet (180 mg total) by mouth 2 (two) times a day 180 tablet 1 5 025 Discontin ued(Reord er) Active Problems Problem Noted Date Diagnosed Date [...] implantable loop record er 11/17/2021 Overview (11/17/2021): [id number] Biomonitor III Loop Recorder. Dx; Stroke. DOI 11/16/2021-[facility]. Biotronik remote home monitoring. History of multiple strokes [...] 25mg BID with parameters -SBP stable 110-150 Resolved Problems Problem Noted Date Diagnosed Date [...] diet Speech ordered for re-evaluation Tricuspid regurgitation 02/13/202302/09 Assessment & Plan (02/14/2023 5:51 PM CDT): [...] insufficiency a nd aortic valve insufficiency 03/27/2023 Social History Tobacco Use Types Packs/Day Years Used Date Smoking Tobacco: Never Smokeless Tobacco: Never Tobacco Cessation:Counseling Given: Not Answered Alcohol Use Standard Drinks/Week Comments Yes 0 (1 standard drink = 0.6 oz pur e alcohol) rarely AUDIT-C Answer Date Recorded Q1: How often do you have a drink containing alc ohol? Monthly or less 12/18/2022 Q2: How many drinks containi ng alcohol do you have on a typical day when you are drinking? 1 or 2 12/18/2022 Q3: How often do you have si x or more drinks on one occasion? Never 12/18/2022 Personal Safety Answer Date Recorded Have you ever been in or are you currently in a harmful physical or emotional relationship or is someone making you feel afraid or unsafe? 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 file Not on file Not on file Last Filed Vital Signs Vital Sign Reading Time Taken Comments Blood Pressure 157/85 01/29/2025 9:11 AM CDT Pulse 73 01/29/2025 9:11 AM CDT Temperature 36.3 C (97.4 F) 01/29/2025 9:11 AM CDT Respiratory Rate 18 02/27/2023 12:31 PM CDT Oxygen Saturation 97% 09/20/2023 10:54 AM [employer]AR WATCHSTANDER Inhaled Oxygen Concentration - - Weight 90.7 kg (200 lb) 01/29/2025 9:11 AM CDT Height 152.4 cm (5') 01/29/2025 9:11 AM CDT Body Mass Index 39.06 01/29/2025 9:11 AM CDT Plan of Treatment Not on file Medical Devices Implanted Type Area Retail Specialist Device Identifier Shelf Expiration Date Model / Serial / Lot Markers Cervix Portacath Left: Chest [employer] Johnson Ii Cinch 27mm 19mm Bioprosthesis Stented Lamb Valve [id number] - [id number] - [id number] Implanted:Qty: 1 on 02/15/2023 by Sandra Sheppard MD at [facility] N/A: Heart [employer] [id number] 04/09/2025 [id number] / [id number] / Procedures Procedure Name Priority Date/Time Associated Diagnosis Comments PROTEIN / CREATININE RATIO, URINE, RANDOM Routine 01/29/2025 11:52 AM CDT ILD (interstitial lung disease) (HCC) High risk medication use URINALYSIS AND REFLEX TO MICROSCOPIC AND CULTURE Routine 01/29/2025 11:52 AM CDT ILD (interstitial lung disease) (HCC) High risk medication use ERYTHROCYTE SEDIMENTATION RATE Routine 01/29/2025 10:33 AM CDT ILD (interstitial lung disease) (HCC) High risk medication use CRP (ACUTE PHASE) Routine 01/29/2025 10: 33 AM CDT ILD (interstitial lung disease) (HCC) High risk medication use BASIC METABOLIC PANEL Routine 01/29/2025 10:33 AM CDT ILD (interstitial lung disease) (HCC) High risk medication use COMPREHENSIVE METABOLIC PANEL Routine 12/01/2024 ILD (interstitial lung disease) (HCC) High risk medication use CBC WITH AUTO DIFFERENTIAL Routine 12/01/2024 ILD (interstitial lung disease) (HCC) High risk medication use HEMOGLOBIN A1C Routine 03/27/2023 12:05 PM CDT Mitral valve insufficiency and aortic valve insufficiency Type 2 diabetes mellitus without complication, unspecified whether [facility] insulin use (HCC) HEPATITIS PANEL, ACUTE Routine 03/01/2023 9:14 AM CDT ILD (interstitial lung disease) (HCC) LIPID PANEL STAT 02/13/2023 2:30 PM CDT COLONOSCOPY REPORT 05/16/2016 from Last 3 Months or Most Recently Relevant to Health Maintenance Results * Urinalysis reflex to microscopic and culture Urine, clean voided (01/29/2025 11:52 AM CDT) Color, ur Straw Yellow Clarity, ur Clear Clear [facility] Specific gravity, ur 1.013 1.003 - 1.030 [facility] pH, urine 6.0 [facility] Comment: Interpretive Data U rine pH is affected by diet, medications, systemic acid-base disturbances, and renal tubular function. pH may affect urinary stone formation. For example, urine pH below 6.0 may help reduce the tendency for calcium phosphate stones and pH greater than 6.0 may reduce the tendency for uric acid stone formation. Source: [facility] Current Interpretive Data was last revised on 2017 Protein, ur ql Negative Negative [facility] Glucose, ur ql Negative Negative [facility] Ketones, ur Negative Negative [facility] Bilirubin, ur Negative Negative [facility] Blood, ur Negative Negative [facility] Urobilinogen, ur <2.0 <2.0 mg/dL [facility] Nitrite, ur Negative Negative [facility] Leukocyte esterase, ur Negative Negative [facility] UA reflex comment Reflex conditions for microscopic UA and culture not met. [facility] Urine, clean voided 01/29/2025 11:52 AM CDT 01/29/2025 12:05 PM CDT us Flor Anderson MD LAB MICROBIOLOGY - GENERAL ORDER JUAN Final Result [facility] Department [place] [address] * Protein / creatinine ratio, urine, random (01/29/2025 11:52 AM CDT) Protein, ur, quant <5.0 mg/dL Comment: Interpretive Data No reference range established. Current interpretive data was last revised 2018. Creatinine Ur 35.0 mg/dL [facility] Comment: Interpretive Data No reference range established. Current interpretive data was last revised 2018. Protein/creatinin e ratio <142.9 0.0 - 180.0 mg/g CR [facility] Urine 01/29/2025 11:5 2 AM CDT 01/29/2025 12:05 PM CDT Flor Anderson MD LAB URINE ORDERABLES Final Resul t [facility] Department [place] [address] * (ABNORMAL) Erythrocyte sedimentation rate (01/29/2025 10:33 AM CDT) Erythrocyte Sedimentation Rate 82(H) <30 mm/hr [facility] Blood 01/29/2025 10:3 3 AM CDT 01/29/2025 12:38 PM CDT Flor Anderson MD LAB BLOOD ORDERABLES Final Resul t Performing Organization Address City/[facility] Co de Phone Number [facility] CORE LAB [facility] * CRP (acute phase) (01/29/2025 10:33 AM CDT) C-Reactive Protein, Acute 3.7 <5.0 mg/L [facility] Blood 01/29/2025 10:3 3 AM CDT 01/29/2025 12:38 PM CDT Flor Anderson MD LAB BLOOD ORDERABLES Final Resul t Performing Organization Address City/[facility] Co de Phone Number [facility] CORE [facility] * (ABNORMAL) Basic metabolic panel (01/29/2025 10:33 AM CDT) Glucose 103(H) 64 - 99 mg/dL [facility] Comment: NONFASTING GLUCOSE RANGE = 64-199 mg/dL FASTING GLUCOSE 64 - 99 = NORMAL FASTING GLUCOSE 100 - 125 = IMPAIRED FASTING GLUCOSE FASTING GLUCOSE >=126 = PROVISIONAL DIAGNOSIS OF DIABETES Potassium 4.1 3.3 - 5.1 mmol/L [facility] Creatinine 0.87 0.60 - 1.10 mg/dL [facility] BUN 26(H) 7 - 23 mg/dL [facility] Sodium 140 135 - 145 mmol/L [facility] Chloride 101 95 - 107 mmol/L [facility] CO2 Content 26 21 - 29 mmol/L [facility] Calcium 9.7 8.6 - 10.3 mg/dL [facility] eGFR 68.2 >60.0 mL/min/1.7 3 m2 [facility] Blood 01/29/2025 10:3 3 AM CDT 01/29/2025 12:38 PM CDT Flor Anderson MD LAB BLOOD ORDERABLES Final Resul t [facility] CORE [facility] * CBC with auto differential (12/01/2024) SCRIBED WBC 8.25 4.1 - 11.0 k/cumm EXTERNAL LAB SCRIBED RBC 4.71 4.50 - 5.10 m/cumm EXTERNAL LAB SCRIBED Hemoglobin 13.7 12.3 - 15.3 g/dL EXTERNAL LAB SCRIBED Platelets 266 151 - 353 k/cumm EXTERNAL LAB Blood 12/01/2024 Flor Anderson MD LAB BLOOD ORDERABLES Final Resul t Performing Organization Address [facility] de Phone Number EXTERNAL LAB * (ABNORMAL) Comprehensive metabolic panel (12/01/2024) SCRIBED Creatinine 1.30(A) 0.55 - 1.02 mg/dl EXTERNAL LAB SCRIBED Bilirubin 0.3 0.2 - 1.2 mg/dl EXTERNAL LAB SCRIBED Alkaline Phosphatase 83 50 - 136 Units/L EXTERNAL LAB SCRIBED Alanine Transaminase (ALT) 19 14 - 55 Units/L EXTERNAL LAB SCRIBED Aspartate Transaminase (AST) 14(A) 15 - 37 Units/L EXTERNAL LAB Blood 12/01/2024 Flor Anderson MD LAB BLOOD ORDERABLES Final Resul t EXTERNAL LAB * (ABNORMAL) Hemoglobin A1c (03/27/2023 12:05 PM CDT) Pathologist [facility] Hgb A1C 7.0(H) 4.0 - 5.6 % [facility] Estimated Average Glucose 154 mg/dL [facility] Comment: The ADA recommends reporting an estimated Average Glucose (eAG) with all Hemoglobin A1c results using the equation derived from a study of 507 normal and diabetic adults. Minority populations were underrepresented and children were not included. (Diabetes Care 2020; 43(S1): S66-S76). The eAG is not equivalent to a fasting glucose. Blood Venous blood specimen / Unknown 03/27/2023 12:05 PM CDT 03/27/2023 12:40 PM CDT us Maria Alejandra Aldana NP LAB BLOOD ORDERABLES Final Result Performing Organization Address City/[facility] Co de Phone Number [facility] [place] [address] * Hepatitis panel, acute (03/01/2023 9:14 AM CDT) Pathologist [facility] Hep A IgM Nonreactive Nonreactive [facility] Hep B core IgM Nonreactive Nonreactive [facility] Hep C Ab Nonreactive Nonreactive [facility] Comment:Antibodies to HCV no t detected. Does NOT exclude the possibility of recent exposure to HCV. Current interpretive data was last revised on 22 HepBsAg Nonreactive Nonreactive [facility] Blood 03/01/2023 9:14 AM CDT 03/01/2023 11:18 AM CDT Flor Anderson MD LAB MICROBIOLOGY - GENERAL ORDER JUAN Final Result Performing Organization Address City/[facility]/ZIP Co de Phone Number [facility] [place] [address] * (ABNORMAL) Lipid panel (02/13/2023 2:30 PM CDT) Pathologist [facility] Cholesterol 97 30 - 199 mg/dL [facility] Comment: Interpretive Data Ages < or = 19 years Acceptable: <170 mg/dL Borderline high: 170-199 mg/dL High: >or= 200 mg/dL Ages > or = 20 years Desirable: <200 mg/dL Borderline high: 200-239 mg/dL High: >or= 240 mg/dL Literature References: 1. Expert Panel on Integrated Guidelines for Cardiovascular Health and Risk Reduction in Children and Adolescents. Pediatrics 2011;128:S213 2. NCEP Expert Panel. Circulation 2004;110:227 Current Interpretive Data was last revised on 2018. Triglycerides 78 <=149 mg/dL [facility] Comment: Interpretive Data Ages < or = 9 years Acceptable: <75 mg/dL Borderline high: 75-99 mg/dL High: >or= 100 mg/dL Ages 10 to 20 years Acceptable: <90 mg/dL Borderline high: 90-129 mg/dL High: >or= 130 mg/dL Ages > or = 20 years Desirable: <150 mg/dL Borderline high: 150-199 mg/dL High: 200-499 mg/dL Very high: >or= 499 mg/dL Literature References: 1. Expert Panel on Integrated Guidelines for Cardiovascular Health and Risk Reduction in Children and Adolescents. Pediatrics 2011;128:S213 2. NCEP Expert Panel. Circulation 2004;110:227 Current Interpretive Data was last revised on 2018. HDL 38(L) >=40 mg/dL [facility] Comment: Interpretive Data Ages < or = 19 years Acceptable: >45 mg/dL Borderline low: 40-45 mg/dL Low: <40 mg/dL Ages > or = 20 years Desirable: >or= 60 mg/dL Low: <40 mg/dL Literature References: 1. Expert Panel on Integrated Guidelines for Cardiovascular Health and Risk Reduction in Children and Adolescents. Pediatrics 2011;128:S213 2. NCEP Expert Panel. Circulation 2004;110:227 Current Interpretive Data was last revised on 2018. LDL, calculated 43 <=129 mg/dL [facility] Comment: Interpretive Data Ages < or = 19 years Acceptable: <110 mg/dL Borderline high: 110-129 mg/dL High: >or= 130 mg/dL Ages > or = 20 years Optimal: <100 mg/dL Near optimal: 100-129 mg/dL Borderline high: 130-159 mg/dL High: >160 mg/dL Literature References: 1. Expert Panel on Integrated Guidelines for Cardiovascular Health and Risk Reduction in Children and Adolescents. Pediatrics 2011;128:S213 2. NCEP Expert Panel. Circulation 2004;110:227 Current Interpretive Data was last revised on 2018. Non-HDL Cholesterol 59 mg/dL [facility] Comment: Interpretive Data Ages < or = 19 years Acceptable: <120 mg/dL Borderline high: 120-144 mg/dL High: >145 mg/dL Ages > or = 20 years When triglycerides are >200 mg/dL, Non-HDL cholesterol is a secondary target of therapy with treatment goals that are 30 mg/dL greater than the LDL cholesterol target. Literature References: 1. Expert Panel on Integrated Guidelines for Cardiovascular Health and Risk Reduction in Children and Adolescents. Pediatrics 2011;128:S213 2. NCEP Expert Panel. Circulation 2004;110:227 Current Interpretive Data was last revised on 2018. Chol/HDL ratio 3 [facility] Blood 02/13/2023 2:30 PM CDT 02/13/2023 2:45 PM CDT Barbara Carrasquillo CRM SPECIALIST LAB BLOOD ORDERA BLES Final Result [facility] [place] [address] * COLONOSCOPY REPORT (05/16/2016) Anatomical Region Laterality Modality Other Narrative 05/16/2016 Ordered by an unspecified provider. 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 * Full Code (Latest Code Status on File) Date Activated Date Inactivated Comments 02/13/2023 12:26 PM 02/27/2023 8:34 PM * Full Code Date Activated Date Inactivated Comments 12/18/2022 3:06 PM 12/18/2022 10:50 PM * Full Code Date Activated Date Inactivated Comments 11/18/2021 3:23 AM 11/25/2021 1:17 AM * Full Code Date Activated Date Inactivated Comments 05/06/2018 11:55 AM 05/09/2018 4:22 PM Care Teams Investor Relations Coordinator Relationship Specialty Start Date End Date Cachorro Lovell MD [address] [place] [id number] PCP - General Family Medicine 09/19/22 Maurice Ojeda MD [id number] [place] [address] Referring Physician Gynecologic Oncology 05/06/18 Anna Barillas MD [id number] [place] [address] Consulting Physician Cardiology 11/24/21 [place] [address] [place] [address] Consulting Physician Internal Medicine 11/24/21 Steven Odonnell MD [address] [address] Pulmonary Disease 12/10/22 Sandra Sheppard MD [address] [place] [id number] Surgeon Cardiothoracic Surgery 02/27/23 Miscellaneous, Not In File 02/27/23
--- OUTSIDE RECORDS SUMMARY | 2025-02-24 13:54 | XMS_ITS | Encounter Summary ---
Author Organization [facility] Address [address] [place] [address] Care Team Providers Care Brand Marketing Manager Name Role Phone Cachorro Lovell MD Primary Care Provider [phone] Janina Cruz PA-C Primary Care Provider [phone] Encounter Details Date Type Department Care Team (Late st Contact Info) Description 08/22/2023 Abstract [facility] [address] Ciara Recinos MA Social History Tobacco Use [...] 10/20/2022 How often do you attend chur ch or zoroastrianism services? More than 4 times per year 10/20/2022 Do you belong to any clubs o r organizations such as sabianist groups, unions, fraternal or athletic groups, or [...] and heating? Not hard at all 10/20/2022 [facility] - [...] place to sleep or slept in a longterm (including now)? Yes 10/20/2022 Comments No Sex and Gender Information Value Date Recorded Sex Assigned at Female 08/26/2024 8:59 AM BLOCK STACKER Legal Sex Female 7:07 PM CDT Gender [...] 10/24/2022 4:23 PM CDT Harini Ovalles R Gerald Active * Do you have serious difficulty [...] Assessment Author Status Yes 10/20/2022 5:00 PM BLOCK STACKER Steven Galicia RN Active documented as of this encounter Mental Status * Because of a physical, mental, or emotional condition, do you have serious difficulty concentrating, remembering, or making decisions? Answer Entry Date Author Status No 10/24/2022 4:23 PM CDT Josr, Shayne Mckeon Active documented in this encounter Plan of Treatment Upcoming Encounters Date Type Department Care Team (Late st Contact Info) Description 08/16/2025 1:00 PM BLOCK STACKER Office Visit [facility] [address] [place] [id number] Viviana Steele, JOAN 3 [facility] [address] [place] [address] documented as of this encounter Goals Goal Patient Goal Type Associated Problems Recent Progress Patient-Stated? Author Health - patient able to perform ADLs independently General No Indu George RN documented as of this encounter Procedures Procedure Name Priority Date/Time Associated Diagnosis Comments HEMOGLOBIN, GLYCOSYLATED Routine 03/04/2023 COMPREHENSIVE METABOLIC PANEL Routine 03/04/2023 CBC, MANUAL DIFF Routine 03/04/2023 CBC, MANUAL DIFF Routine 03/04/2023 THYROID STIM HORMONE TSH Routine 03/04/2023 VITAMIN D, 25 OH Routine 03/04/2023 URIC ACID BLOOD Routine 03/04/2023 documented in this encounter Results * COMPREHENSIVE METABOLIC PANEL (03/04/2023) Pathologist [facility] GLUCOSE 126 mg/dL us Default History Genericprovider LABORATORY Final Result * CBC, MANUAL DIFF (03/04/2023) Pathologist [facility] WBC 7.0 HGB 8.8 HCT 28.2 PLT 326 us Default History Genericprovider LABORATORY Final Result * VITAMIN D, 25 OH (03/04/2023) VITAMIN D 25 HYDROXY S/P/B 66 03/04/2023 us Default History Genericprovider LABORATORY Final Result * URIC ACID BLOOD (03/04/2023) Pathologist [facility] URIC ACID 6.8 03/04/2023 us Default History Genericprovider LABORATORY Final Result * CBC, MANUAL DIFF (03/04/2023) Pathologist [facility] WBC 7.0 HGB 8.8 HCT 28.2 PLT 326 us Default History Genericprovider LABORATORY Final Result * HEMOGLOBIN, GLYCOSYLATED (03/04/2023) Pathologist [facility] HGB A1C 6.6 % us Default History Genericprovider LABORATORY Final Result * THYROID STIM HORMONE, TSH (03/04/2023) Pathologist [facility] TSH 0.87 us Default History Genericprovider LABORATORY Final Result documented in this encounter Visit Diagnoses Not on filedocumented in this encounter Additional Health Concerns Infection Onset Date Last Indicated Resolved Time COVID-19 Rule Out 10/15/2023 10/15/2023 10/15/2023 1:11 PM BLOCK STACKER COVID-19 Rule Out 07/23/2024 07/23/2024 07/23/2024 12:50 PM BLOCK STACKER documented as of this encounter Care Teams Brand Marketing Manager Relationship Specialty Start Date End Date Cachorro Lovell MD [address] [place] [address] PCP - General FAMILY PRACTICE 10/17/22 01/26/24 Janina Cruz PA-C [address] [place], [place] [address] [place] [address] PCP - General PHYSICIAN STRATEGY CONSULTANT 01/27/24 documented as of this encounter
--- OUTSIDE RECORDS SUMMARY | 2025-02-24 13:54 | XMS_ITS | Clinical Summary ---
Author Organization [facility] Address [address] [place] [address] Care Team Providers Care Mineral Economist Name Role Phone Maurice Ojeda MD Unavailable [phone] Anna Barillas MD Unavailable Luis Miguel Perkins MD Unavailable [phone] Cachorro Lovell MD Primary Care Provider [phone] Steven Odonnell MD Unavailable [phone] Sandra Sheppard MD Unavailable [phone] Miscellaneous, Not In File Unavailable Unava ilable Allergies Active Allergy Reactions Criticality Noted Date [...] 2nd Gen Pen Needle 32 gauge x needle daily 3 Active potassium chloride ER [...] Hyperlipidemia associated with type 2 diabetes m rayrayitus 03/27/2023 S/P mitral valve replacement with bioprosthetic valve 03/27/2023 Aortic atherosclerosis 03/27/2023 Obesity (BMI 35.0-39.9 without comorbidity) 12/2022 Assessment & Plan (02/14/2023 5:51 PM CDT): BMI = 36.33 -Fall precautions -Consider bariatric equipment History of COVID-19 09/19/2022 H/O bacterial endocarditis 03/13/[address] scan of lung 03/13/2022 History of uterine cancer 11/18/2021 Status post placement of implantable loop record er 11/17/2021 Overview (11/17/2021): Writer's Bloq Biomonitor III Loop Recorder. Dx; Stroke. DOI 11/16/2021-[facility] Fre[employer] Geniusron[employer] remote home monitoring. History of multiple strokes [...] insufficiency a nd aortic valve insufficiency 03/27/2023 Encounters Date Type Department Care Team Description 02/02/2025 Telephone [facility] [address] [place] [address] [place] [address] Flor Anderson MD Medical Records Request 01/29/2025 10:34 AM CDT - 01/29/2025 11:59 PM CDT Hospital Encounter [address] [address] ILD (interstitial lung disease) (HCC); High risk medication use Discharge Disposition: Discharge to home or self care 01/29/2025 10:15 AM CDT Lab [facility] Endocrinology Metabolism and Lipid [address] [place] [address] [place] [phone] ILD (interstitial lung disease) (HCC); High risk medication use 01/29/2025 9:30 AM CDT Office Visit [facility] [address] [place] [address] [place] [phone] ILD (interstitial lung disease) (HCC) (Primary Dx); High risk medication use; Osteoarthritis of both knees, unspecified osteoarthritis type; Low back pain, unspecified back pain laterality, unspecified chronicity, unspecified whether sciatica present 12/08/2024 Telephone [facility] [address] [place] [address] [place] [address] Flor Anderson MD from Last 3 Months Surgical History Surgery Date Site/Laterality Comments [place] TONSILLECTOMY PRIMARY/SEC ONDARY <AGE 13 Tonsillectomy - (Added by TW Conv) [place] TOTAL ABDOMINAL HYSTERECT W/WO RMVL TUBE OVARY Hysterectomy - (Added by TW Conv) SHOULDER SURGERY CARDIAC VALVE REPLACEMENT Medical History Medical History Date Comments Personal history of other ve nous thrombosis and embolism H/O blood clots - (Added by TW Conv) Endometrial cancer (HCC) s/p hys terectomy, radiation tx, 2nd round in 2018 Diabetes (HCC) Hypertension Psoriasis Heart valve problem Cataracts, bilateral Uterine cancer (HCC) 2016 IB, s/p hys terectomy. Local recurrence 2017 tx'd w/ radiation and brachyTx. Vee Silva Stroke ([facility]) bilateral lacuna r infarcts Diastolic dysfunction Covid-19 10/2021 Mitral insufficiency Stroke ([facility]) October 2021 and M arch 2022 - no residual deficits except possibly some slight memory loss Family History Medical History Relation Name Comments No Known Problems Brother Arthritis Father Kidney failure Father Family histor y of renal failure - (Added by TW Conv) Breast cancer Mother Family history of malignant neoplasm of breast - (Added by TW Conv) Lung cancer Mother Family history of lung cancer - (Added by TW Conv) Arthritis Sister Relation Name Status Comments Brother Alive Father (Age 93) Mother (Age 39) Sister Alive Social History Tobacco Use Types Packs/Day Years [...] on file Legal Sex Female 11:53 AM STAFFING ACCOUNT MANAGER Gender Identity Not on file Sexual Orientation Not on file 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 Not on file Not on file 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 Not on file Not on file Not on file Obstetrics History Para Term AB IAB SAB Ectopic Multiple Livin g Live Births 2 2 Date Outcome GA Total Labor Labor/2nd/3rd Weight Sex Type Anes PTL Shayy A1 A5 Name Clin Para Para Last Filed Vital Signs Vital Sign Reading Time Taken Comments Blood Pressure 157/85 01/29/2025 9:11 AM CDT Pulse 73 01/29/2025 9:11 AM CDT Temperature 36.3 C (97.4 F) 01/29/2025 9:11 AM CDT Respiratory Rate 18 02/27/2023 12:31 PM CDT Oxygen Saturation 97% 09/20/2023 10:54 AM STAFFING ACCOUNT MANAGER Inhaled Oxygen Concentration - - Weight 90.7 kg (200 lb) 01/29/2025 9:11 AM CDT Height 152.4 cm (5') 01/29/2025 9:11 AM CDT Body Mass Index 39.06 01/29/2025 9:11 AM CDT Plan of Treatment Health Maintenance Due Date Last Done Comments Albumin Creatinine Ratio, Urine 1945 Depression Screening 1945 Osteoporosis Screening-Bone Density Scan 1945 Dilated Eye Exam 1946 Foot Exam 1946 DTaP/Tdap/Td Vaccine (1 - Tdap) 1957 Hepatitis B Screening 1964 Zoster Vaccine (1 of 2) 1965 Well Visit 65+ 12/29/2011 Hemoglobin A1C 09/27/2023 03/27/2023, 07/0 12/2022, 05/06/2018 Lipid Panel 02/14/2024 02/13/2023, 03/0 04/2023, 02/27/2022, Additional history exists Fall Risk Assessment 02/28/2024 02/27/2023 Influenza Vaccine (#1) 2025 05/05/2019 eGFR 01/29/2026 01/29/2025, 08/1 01/2023, 03/01/2023, Additional history exists Colon Cancer Screening-CT Colonography Discontinued 05/16/2016 Colon Cancer Screening-Colonoscopy Discontinued 05/16/2016 Colon Cancer Screening-DNA Stool Discontinued 05/16/20 16 Colon Cancer Screening-FIT Discontinued 05/16/2016 Colon Cancer Screening-FOBT Discontinued 05/16/2016 Colon Cancer Screening-Sigmoidoscopy Discontinued 05/16/2016 Colorectal Cancer Screening Discontinued Pneumococcal vaccine 65+ Completed 06/11/2018, 05/12 Hepatitis C Screening Completed 03/01/2023 Medical Devices Implanted Type Area Cigarette Seller Device Identifier Shelf Expiration Date Model / Serial / Lot Markers Cervix Portacath Left: Chest [employer] Johnson Ii Cinch 27mm 19mm Bioprosthesis Stented Lamb Valve [id number] - [id number] - [id number] Implanted:Qty: 1 on 02/15/2023 by Sandra Sheppard MD at [facility] N/A: Heart [employer] [id number] 04/09/2025 [id number] / [id number] / Procedures Procedure Name Priority Date/Time Associated [...] 2 diabetes mellitus without complication, unspecified whether manager intermediate insulin use (HCC) HEPATITIS PANEL, ACUTE Routine 03/01/2023 9:14 AM CDT ILD (interstitial lung disease) (HCC) LIPID PANEL STAT 02/13/2023 2:30 PM CDT COLONOSCOPY REPORT 05/16/2016 from Last 3 Months or Most Recently Relevant to Health Maintenance Results * Urinalysis reflex to microscopic and culture Urine, clean voided (01/29/2025 11:52 AM CDT) Color, ur Straw Yellow Clarity, ur Clear Clear [facility] Specific gravity, ur 1.013 1.003 - 1.030 [facility] pH, urine 6.0 [facility] Comment: Interpretive Data U rine pH is affected by diet, medications, systemic acid-base disturbances, and renal tubular function. pH may affect urinary stone formation. For example, urine pH below 6.0 may help reduce the tendency for calcium phosphate stones and pH greater than 6.0 may reduce the tendency for uric acid stone formation. Source: [facility] Current Interpretive Data was last revised on 2017 Protein, ur ql Negative Negative [facility] Glucose, ur ql Negative Negative [facility] Ketones, ur Negative Negative [facility] Bilirubin, ur Negative Negative [facility] Blood, ur Negative Negative [facility] Urobilinogen, ur <2.0 <2.0 mg/dL [facility] Nitrite, ur Negative Negative [facility] Leukocyte esterase, ur Negative Negative [facility] UA reflex comment Reflex conditions for microscopic UA and culture not met. [facility] Urine, clean voided 01/29/2025 11:52 AM CDT 01/29/2025 12:05 PM CDT us Flor Anderson MD LAB MICROBIOLOGY - GENERAL ORDER JUAN Final Result [facility] Department [place] [address] * Protein / creatinine ratio, urine, random (01/29/2025 11:52 AM CDT) Protein, ur, quant <5.0 mg/dL Comment: Interpretive Data No reference range established. Current interpretive data was last revised 2018. Creatinine Ur 35.0 mg/dL [facility] Comment: Interpretive Data No reference range established. Current interpretive data was last revised 2018. Protein/creatinin e ratio <142.9 0.0 - 180.0 mg/g CR [facility] Urine 01/29/2025 11:5 2 AM CDT 01/29/2025 12:05 PM CDT Flor Anderson MD LAB URINE ORDERABLES Final Resul t Performing Organization Address City/[facility] Co de Phone Number [facility] Department [place] [address] * (ABNORMAL) Erythrocyte sedimentation rate (01/29/2025 10:33 AM CDT) Erythrocyte Sedimentation Rate 82(H) <30 mm/hr [facility] Blood 01/29/2025 10:3 3 AM CDT 01/29/2025 12:38 PM CDT Flor Anderson MD LAB BLOOD ORDERABLES Final Resul t Performing Organization Address City/[facility]/ZIP Co de Phone Number [facility] * CRP (acute phase) (01/29/2025 10:33 AM CDT) C-Reactive Protein, Acute 3.7 <5.0 mg/L [facility] Blood 01/29/2025 10:3 3 AM CDT 01/29/2025 12:38 PM CDT Flor Anderson MD LAB BLOOD ORDERABLES Final Resul t Performing Organization Address City/[facility]/ZIP Co de Phone Number [facility] * (ABNORMAL) [...] MD LAB BLOOD ORDERABLES Final Resul t [facility] * CBC with auto differential (12/01/2024) SCRIBED WBC 8.25 4.1 - 11.0 k/cumm EXTERNAL LAB SCRIBED RBC 4.71 4.50 - 5.10 m/cumm EXTERNAL LAB SCRIBED Hemoglobin 13.7 12.3 - 15.3 g/dL EXTERNAL LAB SCRIBED Platelets 266 151 - 353 k/cumm EXTERNAL LAB Blood 12/01/2024 Flor Anderson MD LAB BLOOD ORDERABLES Final Resul t EXTERNAL LAB * (ABNORMAL) Comprehensive metabolic panel [...] Hemoglobin A1c (03/27/2023 12:05 PM CDT) Pathologist [facility] Hgb A1C 7.0(H) 4.0 - 5.6 % [facility] Estimated Average Glucose 154 mg/dL [facility] Comment: The ADA recommends reporting [...] 12:05 PM CDT 03/27/2023 12:40 PM CDT Maria Alejandra Aldana NP LAB BLOOD ORDERABLES Final Result Performing Organization Address City/[facility]/ZIP Co de Phone Number [facility] Department [place] [address] * Hepatitis panel, acute (03/01/2023 9:14 AM CDT) [facility] Hep A IgM Nonreactive Nonreactive [facility] Hep B core IgM Nonreactive Nonreactive [facility] Hep C Ab Nonreactive Nonreactive [facility] Comment:Antibodies to HCV no t detected. Does NOT exclude the possibility of recent exposure to HCV. Current interpretive data was last revised on 22 HepBsAg Nonreactive Nonreactive [facility] Blood 03/01/2023 9:14 AM CDT 03/01/2023 11:18 AM CDT us Flor Anderson MD LAB MICROBIOLOGY - GENERAL ORDER JUAN Final Result [facility] Department [place] [address] * (ABNORMAL) Lipid panel (02/13/2023 2:30 PM CDT) Cholesterol 97 30 - 199 mg/dL [facility] Comment: Interpretive Data Ages < [...] revised on 2018. Triglycerides 78 <=149 mg/dL [facility] Comment: Interpretive Data Ages < [...] revised on 2018. HDL 38(L) >=40 mg/dL [facility] Comment: Interpretive Data Ages < [...] on 2018. LDL, calculated 43 <=129 mg/dL [facility] Comment: Interpretive Data Ages < [...] revised on 2018. Non-HDL Cholesterol 59 mg/dL [facility] Comment: Interpretive Data Ages < or = [...] last revised on 2018. Chol/HDL ratio 3 [facility] Blood 02/13/2023 2:30 PM CDT 02/13/2023 2:45 PM CDT us Barbara Carrasquillo NP LAB BLOOD ORDERA BLES Final Result [facility] Department [place] [address] * COLONOSCOPY REPORT (05/16/2016) Anatomical Region Laterality Modality Other Narrative 05/16/2016 Ordered by an unspecified provider. us Historical Provider MD KRAUS PROCEDURE ORDERABLES F inal Result from Last 3 Months or Most Recently Relevant to Health Maintenance Insurance MEDICARE MEDICARE [facility] MEDICARE MEDIC[facility] Advance Directives For more information, please contact: [phone] Documents on File Type Date Recorded Patient Senior Technical Writer Expl anation ADVANCE DIRECTIVE 11/27/2021 12:32 PM LYNDON R OF ENVIRONMENTAL COMPLIANCE MANAGER-MEDICAL * Full Code (Latest Code Status on File) Date Activated Date Inactivated Comments 02/13/2023 12:26 PM 02/27/2023 8:34 PM * Full Code Date Activated Date Inactivated Comments 12/18/2022 3:06 PM 12/18/2022 10:50 PM * Full Code Date Activated Date Inactivated Comments 11/18/2021 3:23 AM 11/25/2021 1:17 AM * Full Code Date Activated Date Inactivated Comments 05/06/2018 11:55 AM 05/09/2018 4:22 PM Care Teams Mineral Economist Relationship Specialty Start Date End Date Cachorro Lovell MD [address] [place] [address] PCP - General Family Medicine 09/19/22 Maurice Ojeda MD [address] [facility] [phone] [place] [address] Referring Physician Gynecologic Oncology 05/06/18 Anna Barillas MD [address] [facility] [phone] [place] [address] Consulting Physician Cardiology 11/24/21 [place] [address] [place] [address] Consulting Physician Internal Medicine 11/24/21 Steven Odonnell MD [address] [address] Pulmonary Disease 12/10/22 Sandra Sheppard MD [address] [address] Surgeon Cardiothoracic Surgery 02/27/23 Miscellaneous, Not In File 02/27/23
--- OUTSIDE RECORDS SUMMARY | 2025-02-24 13:54 | XMS_ITS | Encounter Summary ---
Author Organization [facility] Address [address] [place] [address] Care Team Providers Care Stencil Cutter Machine Name Role Phone Janina CruzC Primary Care Provider [phone] Encounter Details Date Type Department Care Team (Late st Contact Info) Description 02/01/2025 Results Follow-Up [facility] [address] [place] [phone] Tami Schulte RN XR CHEST PA+LAT Social History Tobacco Use Types Packs/Day Years [...] How often do you attend chur or orthodoxy services? More than 4 times per year 10/20/2022 Do you belong to any clubs o r organizations such as yarsani groups, unions, fraternal or athletic groups, or [...] Recorded Patient Health Questionnaire-2 Score 0 12/20/2023 [facility] - Occupational Stress Questionnaire Answer Date Recorded [...] place to sleep or slept in a senior living (including now)? Yes 10/20/2022 Comments No Sex and Gender Information Value Date Recorded Sex Assigned at Female 08/26/2024 8:59 AM SUPPORTIVE EMPLOYMENT CASE MANAGER Legal Sex Female 7:07 PM CDT Gender [...] Assessment Author Status Yes 10/20/2022 5:00 PM SUPPORTIVE EMPLOYMENT CASE MANAGER Steven Galicia RN Active documented as of [...] st Contact Info) Description 08/16/2025 1:00 PM SUPPORTIVE EMPLOYMENT CASE MANAGER Office Visit [facility] [address] [place] [phone] Viviana Steele FNP 3 [facility] [address] [place] [address] documented as of this encounter Goals Goal Patient Goal Type Associated Problems Recent Progress Patient-Stated? Author Health - patient able to perform ADLs independently General No Indu George, RN documented as of this encounter Visit Diagnoses Not on filedocumented in this encounter Care Teams Stencil Cutter Machine Relationship Specialty Start Date End Date Janina Cruz, PAMarco AntonioC [address] [place] [address] [address] [place] [address] PCP - General PHYSICIAN SENIOR APPLICATIONS ENGINEER 01/27/24 documented as of this encounter
--- OUTSIDE RECORDS SUMMARY | 2025-02-24 13:56 | XMS_ITS ---
Author Name Auto Generated, Auto Generated Organization [facility] Address [address] [place] [address] Phone [phone] Care Team Providers Care Ice Scraper Name Role Phone Robert Peters Unavailable Anish [...] 8.6 mg tablet 1 TAB TABLET Oral AL N 2 Times Daily Indication: CONSTIPATION SatFeb [...] as directed) SatFeb 28 01:00:00 EDT 2022 [facility] Feb 28 12:09:00 EDT 2022 potassium [...] * Text: * Atherosclerotic heart disease of [place] coronary artery without angina pectoris* Code: * [...] 2022 * End Date: * Text: * computer terminal operator (current) use of aspirin* Code: * Start Date: SatFeb 27 00:00:00 EDT 2022 * End Date: * Text: * computer terminal operator (current) use of insulin* Code: * Start Date: SatFeb 27 00:00:00 EDT 2022 * End Date: * Text: Reason for Referral Past Medical History
--- OUTSIDE RECORDS SUMMARY | 2025-02-24 13:56 | XMS_ITS ---
Author Name Auto Generated, Auto Generated Organization [facility] Address [address] [place] [address] Phone [phone] Care Team Providers Care Civil Engineering Professional Name Role Phone Robert Peters Unavailable [phone] Anish Woods Unavailable Functional Status No Results [...] 8.6 mg tablet 1 TAB TABLET Oral ND N 2 Times Daily Indication: CONSTIPATION SatFeb [...] as directed) SatFeb 28 01:00:00 EDT 2022 [facility] Feb 28 12:09:00 EDT 2022 potassium [...] * Text: * Atherosclerotic heart disease of [place] coronary artery without angina pectoris* Code: * [...] 2022 * End Date: * Text: * 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
[2025-02-24 14:03] VITALS: BP 118/70; PULSE 84; RESP 18; TEMP 36.1; O2SAT 96
--- NOTE | 2025-02-24 14:08 | ED.URI ---
HPI - URI/Sore Throat General Chief Complaint: Upper Respiratory Infection Stated Complaint: COUGH Source: patient Mode of arrival: ambulatory Limitations: no limitations History of Present Illness HPI Narrative: 79-year-old female with a history of COPD, aortic and mitral stenosis (replacement), HTN, and diabetes presented for complaint of cough, sob, and wheezing intermittently for at least 6 months. Endorses cough with clear sputum production. Pt admits to baseline shortness of breath, and says symptoms are worse with walking up stairs. Pt uses Symbicort and albuterol. Follow with pulmonology and cardiology. Pt is accompanied by son who says she has early dementia. Related Data Home Medications ?Medication ?Instructions ?Recorded ?Confirmed ?Last Taken ?Type acetaminophen 500 mg tablet 500 mg PO BID 08/18/20 11/10/24 11/16/21 History (Tylenol Extra Strength) cholecalciferol (vitamin D3) 125 125 mcg PO DAILY 12/04/21 11/10/24 Unknown History mcg (5,000 unit) capsule aspirin 81 mg chewable tablet 81 mg PO DAILY 10/31/22 11/10/24 Unknown History vitamins A,C,U-mosb-voaoeg 4,296 1 cap PO BID 11/18/23 11/10/24 Unknown History mcg-226 mg-90 mg capsule (PreserVision AREDS) ascorbic acid (vitamin C) 1,000 mg 1 g PO DAILY 06/18/24 11/10/24 Unknown History capsule metoprolol succinate 50 mg 75 mg PO DAILY 09/28/24 11/10/24 Unknown History tablet,extended release 24 hr mycophenolic acid 180 mg BYMOUTH BID 09/28/24 11/10/24 Unknown History potassium chloride 10 mEq 10 meq PO DAILY 09/28/24 11/10/24 Unknown History tablet,extended release(part/cryst) Allergies Allergy/AdvReac Type Severity Reaction Status Date / Time adhesive tape Allergy Mild Rash Verified 02/24/25 13:59 cefdinir AdvReac Intermediate Nausea Verified 02/24/25 13:59 nitrofurantoin AdvReac Intermediate Vomiting Verified 02/24/25 13:59 ciprofloxacin (From Cipro) AdvReac Mild Nausea Verified 02/24/25 13:59 cortex Eucommiae AdvReac Gastrointestinal Verified 02/24/25 13:59 Upset Review of Systems Review of Systems: CONSTITUTIONAL: Denies body aches, fever, chills, or sweats. EYES: Denies visual changes ENT: Denies rhinorrhea, congestion, sore throat, or otalgia. CARDIOVASCULAR: Denies chest pain, palpitations, or edema. RESPIRATORY: Reports cough, sob, wheezing. GASTROINTESTINAL: Denies abdominal pain, nausea, vomiting, or diarrhea. SKIN: Denies rash MUSCULOSKELETAL: Denies back pain, joint pain, or myalgia. NEUROLOGIC: Denies headache, numbness, tingling, or weakness. All systems reviewed & are unremarkable except as noted in HPI and below PMFSH Past Medical History Medical History Anxiety and depression Interstitial pneumonia with autoimmune features Patient currently on mycophenolic acid from Rheumatology COPD (chronic obstructive pulmonary disease) Hyperlipidemia SBE (subacute bacterial endocarditis) Aortic stenosis Mitral stenosis CVA (cerebral vascular accident) Hospitalized at [facility] 10/20/2021 with confusion and dizziness. MRI showed multiple acute bilateral lacunar infarcts. Carotid ultrasound showed less than 50% stenosis, mild plaque. Endometrial cancer hysterectomy Iron deficiency anemia Vitamin B12 deficiency Vitamin D deficiency Cataracts, bilateral Normal colonoscopy (~2016) GERD (gastroesophageal reflux disease) Diabetes Essential hypertension (Unknown) Surgical History Surgical History History of loop recorder History of hysterectomy for cancer Hx of tonsillectomy Family History Family History Father Patient's father is in good health Hypertension Sibling Patient's sister is in good health Patient's brother is in good health Mother Family history of malignant neoplasm of breast Son Depression Social History Social History Social History: 07/13/24 patient declined [facility] Smoking status: Never smoker Second hand tobacco smoke exposure: Yes (at work) Alcohol intake: former Substance use: never Substance use type: does not use Do You Feel Safe in your Home?: Yes Lack of Transportation: No Lack of Food: Never True Current Housing: I Have Housing Concerned About Future Housing: No Difficulty Paying Gas/Electric Bills: No Difficulty Paying for Meds: No Currently Unemployed: No Education: High School Diploma/GED Difficulty w/ Childcare or Family Care: No Living arrangements: alone Occupation/Education: retired Gender identity (if verbalized by the patient): Female Sexual Orientation (if Verbalized by the Patient): Straight or Heterosexual Spiritual care concerns: No Agree to blood products: Yes Comments At time of signature, I have reviewed and agree with nursing past medical, surgical, social and family history unless otherwise noted. Please see nursing chart for further information. There is no relevant family history pertinent to the presenting complaint Exam Narrative: GENERAL: Well-appearing, in no acute distress. EYES: No redness or drainage. Conjunctivae normal. ENT: Mucous membranes pink and moist. No rhinorrhea. CHEST: No respiratory distress. Speaks full sentences. Audible wheezing noted, Wheezing to all villegas. HEART: Regular rate and rhythm. No murmur appreciated. ABDOMEN: Soft, nontender, nondistended, normal active bowel sounds. EXTREMITIES: Normal range of motion. No edema. Walks with cane. SKIN: Warm, dry, no rash. Capillary refill normal. Normal skin turgor. NEURO: Alert and oriented x3. Gait steady. PSYCH: Normal affect. Course Course Emergency Course: Patient is aware of diagnosis, understands and agrees to treatment plan. Anticipatory guidance given. Patient agrees to follow-up as directed and is aware of reasons to seek care at the emergency department. Portions of this record may have been created with voice recognition software Level of Care: Express Care Visit Vital Signs Vital signs: Vital Signs Temperature 97.0 F L 02/24/25 14:03 Pulse Rate 84 02/24/25 14:03 Respiratory Rate 18 02/24/25 14:03 Blood Pressure 118/70 02/24/25 14:03 Pulse Oximetry 96 02/24/25 14:03 Oxygen Delivery Room Air 02/24/25 14:03 Temperature 97.0 F L 02/24/25 14:03 Pulse Rate 84 02/24/25 14:03 Respiratory Rate 18 02/24/25 14:03 Blood Pressure 118/70 02/24/25 14:03 Pulse Oximetry 96 02/24/25 14:03 Oxygen Delivery Room Air 02/24/25 14:03 MDM - URI/Sore Throat MDM Narrative Medical decision making narrative: Discussed physical exam findings and CXR. shared decision making will send steroid along with abx for sx. Reviewed RX and plan with pt and son. Advised supportive measures and signs/symptoms to go to the ER. Pt is appropriate for outpt treatment and f/u. Differential Diagnosis Differential diagnosis: Likely upper respiratory infection, sinusitis, viral infection, bronchitis, pharyngitis and other (Angioedema, perforation, asthma, pneumonia, PE, tension pneumothorax, cardiac tamponade FL, pericarditis, pleural effusion, CHF, bronchitis, cardiac arrhythmia) Imaging Data Radiologist's impression: Patient: Mary Navarro : 1945 MR#: [id number] Age: 79 Acct:[id number] Loc: [facility] ADM Date: 02/24/25Attending Dr: Ordering Physician: Bonnie Sol APRN Date of Service: 02/24/25 Procedure(s): XR chest 2V Accession Number(s): [id number] cc: Bonnie Sol APRN; Janina Cruz PA-C~ XR chest 2V Ordering provider: Bonnie oSl APRN History: 79 years Female with . cough x6 months, wheezing . Comparison: None. FINDINGS: MEDIASTINUM: The cardiac silhouette is slightly enlarged. Postoperative changes in the mediastinum. Congestive kavitha. LUNGS: No effusions or pneumothorax. Bilateral interstitial thickening suggestive of pneumonitis. Pulmonary edema is not excluded. OTHER: No free air under the diaphragm. IMPRESSION: Cardiomegaly with cardiac decompensation and pulmonary edema. Pneumonitis is not excluded. Discharge Plan Discharge Clinical Impression: Pneumonitis Patient Disposition: Home Condition: Stable Instructions: Antibiotic Form, Pneumonitis (ED) Additional Instructions: Take medication as directed Continue inhalers as previously prescribed Recommend Zyrtec (or Claritin/Dominique) if you have nasal congestion over the counter Cough syrup may cause drowsiness; avoid driving or take it at night time. Tylenol every 8 hours as needed for pain Follow up with your primary care provider and delivery and installation subcontractor in 1 week Go to the ER for worsening symptoms or concerns Patient Language: Greenlandic Prescriptions: New methylprednisolone [Medrol (Burke)] 4 mg tablets,dose pack See Rx Instructions .ROUTE .COMPLEX Qty: 21 0RF Rx Instructions: orally per package directions amoxicillin-pot clavulanate 875-125 mg tablet 1 tablet PO Q12H 7 Days Qty: 14 0RF No Action acetaminophen [Tylenol Extra Strength] 500 mg tablet 500 mg PO BID cholecalciferol (vitamin D3) 125 mcg (5,000 unit) capsule 125 mcg PO DAILY aspirin 81 mg tablet,chewable 81 mg PO DAILY PreserVision AREDS 4,296 mcg-226 mg-90 mg capsule 1 cap PO BID budesonide-formoterol [Symbicort] 160-4.5 mcg/actuation HFA aerosol inhaler 2 inh inhalation Q12H Qty: 10.2 5RF furosemide 20 mg tablet 20 mg PO BID PRN (Reason: edema) Qty: 60 5RF Lantus Solostar U-100 Insulin 100 unit/mL (3 mL) insulin pen 6 unit subcut DAILY Qty: 3 5RF ascorbic acid (vitamin C) 1,000 mg capsule 1 g PO DAILY atorvastatin 80 mg tablet 80 mg PO QHS Qty: 90 0RF (DME) blood-glucose meter Misc See Rx Instructions .ROUTE .MEDSUPPLY Qty: 1 0RF Rx Instructions: As directed (DME) pen needle, diabetic [TechLITE Pen Needle] 32 gauge x 5/32 needle See Rx Instructions .Route Qty: 100 3RF Rx Instructions: As directed (DME) Contour Next Test Strips Strip See Rx Instructions .ROUTE .MEDSUPPLY Qty: 100 8RF Rx Instructions: test twice daily (DME) lancets Misc See Rx Instructions .ROUTE .MEDSUPPLY Qty: 100 0RF Rx Instructions: use to test sugar BID albuterol sulfate 90 mcg/actuation HFA aerosol inhaler 2 inh inhalation Q4H PRN (Reason: shortness of breath or wheezing) Qty: 8.5 0RF (DME) blood-glucose meter Kit See Rx Instructions .Route Qty: 1 0RF Rx Instructions: test Bid mycophenolic acid 180 mg tablet 180 mg BYMOUTH BID Rx Instructions: Dr. Flor Anderson Rheumatology metoprolol succinate 50 mg tablet extended release 24 hr 75 mg PO DAILY Rx Instructions: Dr. Griffiths potassium chloride 10 mEq tablet,ER particles/crystals 10 meq PO DAILY Rx Instructions: Dr. Griffiths. escitalopram oxalate [Lexapro] 5 mg tablet 5 mg PO DAILY Qty: 90 1RF tramadol 50 mg tablet 50 mg PO Q6H PRN (Reason: pain) Qty: 30 0RF metformin 500 mg tablet extended release 24 hr 500 mg PO BID Qty: 180 0RF donepezil 10 mg tablet 10 mg PO QHS Qty: 30 0RF glimepiride 2 mg tablet 1 mg PO QAM Qty: 45 0RF Follow-up/Referrals: Janina Cruz PA-C [Primary Care Provider] - Time of Disposition: 15:06
== END 2025-02-24 15:08 | disposition home or self-care (01) ==
PROVIDERS: Emergency Provider Nurse Practitioner Family; PCP Physician Assistant Medical
DX: J98.4 Other disorders of lung (principal); J44.9 Chronic obstructive pulmonary disease, unspecified; I10 Essential (primary) hypertension; E11.9 Type 2 diabetes mellitus without complications; Z79.84 Long term (current) use of oral hypoglycemic drugs; E78.5 Hyperlipidemia, unspecified; K21.9 Gastro-esophageal reflux disease without esophagitis; E55.9 Vitamin D deficiency, unspecified; F41.9 Anxiety disorder, unspecified; F32.A Depression, unspecified; Z95.2 Presence of prosthetic heart valve; Z85.42 Personal history of malignant neoplasm of other parts of uterus; Z79.82 Long term (current) use of aspirin
CPT/HCPCS: 71046; 99213; G0463

== ENCOUNTER 2025-03-03 15:25 | Outpatient (CLI) | payer MEDICARE, OTHER, SELFPAY ==
--- NOTE | ~2025-03-03 | MR_ITS ---
EXAMINATION: MR brain/brain stem wo/w con DATE: 03/03/2025 16:30 INDICATION: Cerebral infarction TECHNIQUE: Magnetic resonance imaging (MRI) of the brain and brainstem was performed without and with 18 mL Multihance intravenous contrast. Sequences included sagittal and axial T1-weighted SE, axial d iffusion-weighted FS SE, axial 3D SWAN, axial T2-weighted FLAIR, and axial T2-weighted FSE. Postcontr ast axial, sagittal and coronal T1-weighted SE was obtained. Apparent diffusion coefficient (ADC) map s were created. COMPARISON: None. FINDINGS: There are no areas of restricted diffusion to suggest acute infarction. Couple small old lacunar infa rcts in the No acute intracranial hemorrhage or abnormal intracranial mass lesion. There are multiple small foci of susceptibility artifact in the bilateral cerebral hemispheres and in the samuel consiste nt with postoperative chronic microhemorrhage such as can be seen in setting of hypertension or amylo id angiopathy. There are scattered areas of nonspecific increased T2-weighted signal intensity in the cerebral white matter, predominantly involving the deep and periventricular white matter. There are no intraparenchymal signal abnormalities seen on the other pulse sequences. The ventricles are symmet hodan and normal in size. There are no abnormal extra-axial fluid collections. Flow voids are seen in t he cerebral arteries on the T2-weighted sequences consistent with their expected patency. Changes of bilateral intraocular lens replacement. Mild mucosal thickening the bilateral ethmoid sinuses. Visual ized orbits and soft tissues are unremarkable. There are no areas of abnormal enhancement on the post contrast images. IMPRESSION: 1. A couple small old lacunar infarcts at the right frontal lobe periventricular white matter. No acu te intracranial process. 2. Moderate periventricular predominant scattered white matter T2 hyperintensity which within normal limits for age and likely sequela of chronic small vessel ischemic disease. 3. Multiple small foci of susceptibility artifact in the samuel and bilateral cerebral hemispheres cons istent with sequela of chronic microhemorrhage most likely related to hypertension although different ial would include less likely amyloid angiopathy. Reviewed, dictated and finalized at location A. IMPRESSION: 1. A couple small old lacunar infarcts at the right frontal lobe periventricula r white matter. No acute intracranial process. 2. Moderate periventricular predominant scattered white matter T2 hyperintensit y which within normal limits for age and likely sequela of chronic small vessel ischemic disease. 3. Multiple small foci of susceptibility artifact in the samuel and bilateral cer ebral hemispheres consistent with sequela of chronic microhemorrhage most likel y related to hypertension although differential would include less likely amylo id angiopathy.
--- OUTSIDE RECORDS SUMMARY | 2025-03-03 15:29 | XMS_ITS | Encounter Summary ---
Author Organization [facility] Address [address] [place] [address] Care Team Providers Care Head Banquet Waiter/Waitress Name Role Phone Janina Cruz PA-C Primary Care Provider [phone] Reason for Visit * Reason Onset Date Comments Concerns 01/11/2025 Encounter Details Date Type Department Care Team (Late st Contact Info) Description 01/11/[address] [address] Manuela Murillo RN Concerns Social History Tobacco [...] any clubs o r organizations such as baptism groups, unions, fraternal or athletic groups, or [...] Recorded Patient Health Questionnaire-2 Score 0 12/20/2023 [facility] - [...] place to sleep or slept in a fdc (including now)? Yes 10/20/2022 Comments No Sex and Gender Information Value Date Recorded Sex Assigned at Female 08/26/2024 8:59 AM MALT LIQUORS SALES REPRESENTATIVE Legal Sex Female 7:07 PM CDT Gender [...] Assessment Author Status Yes 10/20/2022 5:00 PM MALT LIQUORS SALES REPRESENTATIVE Steven Galicia RN Active documented as of [...] st Contact Info) Description 08/16/2025 1:00 PM MALT LIQUORS SALES REPRESENTATIVE Office Visit [facility] [address] [place] [phone] Viviana Steele, TRAINMASTER 3 [facility] [address] [place] [address] documented as of this encounter Goals Goal Patient Goal Type Associated Problems Recent Progress Patient-Stated? Author Health - patient able to perform ADLs independently General No Indu George RN documented as of this encounter Visit Diagnoses Not on filedocumented in this encounter Care Teams Head Banquet Waiter/Waitress Relationship Specialty Start Date End Date Janina Cruz PA-C [address] [place], [place] [id number] PCP - General PHYSICIAN ANIMATOR 01/27/24 documented as of this encounter
--- OUTSIDE RECORDS SUMMARY | 2025-03-03 15:29 | XMS_ITS | Encounter Summary ---
Author Organization [facility] Address [address] [place] [address] Care Team Providers Care Van Cdl Driver Name Role Phone AcaciaEliane Primary Care Provider [phone] Cachorro Lovell MD Primary Care Provider [phone] Janina Cruz PA-C Primary Care Provider [phone] Encounter Details Date Type Department Care Team (Late Contact Info) Description 02/28/2021 Abstract [facility] [address] Ciara Recinos MA Social History Tobacco Use Types Packs/Day Years Used Date Smoking Tobacco: Never Smokeless Tobacco: Never Alcohol Use Standard Drinks/Week Comments Not Currently 0 (1 standard drink = 0.6 oz pur e alcohol) SOCIALLY Comments No Sex and Gender Information Value Date Recorded Sex Assigned at Female 08/26/2024 8:59 AM COLD WORKING SUPERVISOR Legal Sex Female 7:07 PM CDT [...] (Late Contact Info) Description 08/16/2025 1:00 PM COLD WORKING SUPERVISOR Office Visit [facility] [address] [place] [phone] Viviana Steele, BRAKE MECHANIC 3 [facility] [address] [place] [address] documented as of this encounter Procedures Procedure [...] Rule Out 10/17/2022 10/17/2022 10/17/2022 5:16 PM COLD WORKING SUPERVISOR COVID-19 Rule Out 10/17/2022 10/18/2022 10/18/2022 12:17 PM COLD WORKING SUPERVISOR COVID-19 Rule Out 10/15/2023 10/15/2023 10/15/2023 1:11 PM COLD WORKING SUPERVISOR COVID-19 Rule Out 07/23/2024 07/23/2024 07/23/2024 12:50 PM COLD WORKING SUPERVISOR documented as of this encounter Care Teams Van Cdl Driver Relationship Specialty Start Date End Date Eliane Roger DO PCP - General FAMILY PRACTICE 09/08/20 10/16/22 Cachorro Lovell MD [address] [place] [address] PCP - General FAMILY PRACTICE 10/17/22 01/26/24 Janina Cruz PA-C [facility] [place] [address] PCP - General PHYSICIAN OCCUPATIONAL THERAPIST ASSISTANTS 01/27/24 documented as of this encounter
--- OUTSIDE RECORDS SUMMARY | 2025-03-03 15:29 | XMS_ITS | Encounter Summary ---
Author Organization [facility] Address [address] [place] [address] Care Team Providers Care Equipment Washer Name Role Phone Janina CruzC Primary Care Provider [phone] Encounter Details Date Type Department Care Team (Late st Contact Info) Description 02/01/2025 Results Follow-Up [facility] [address] [place] [phone] Tami Schulte RN XR CHEST PA+LAT Social [...] How often do you attend chur or judaism services? More than 4 times per year 10/20/2022 Do you belong to any clubs o r organizations such as catholic groups, unions, fraternal or athletic groups, or [...] Recorded Patient Health Questionnaire-2 Score 0 12/20/2023 [facility] - Occupational Stress Questionnaire Answer Date Recorded [...] place to sleep or slept in a mcfp (including now)? Yes 10/20/2022 Comments No Sex and Gender Information Value Date Recorded Sex Assigned at Female 08/26/2024 8:59 AM SUPERVISOR SCREEN MAKING Legal Sex Female 7:07 PM CDT Gender [...] Author Status Yes 10/24/2022 4:23 PM CDT Hraini Ovalles R N Active * Do you have difficulty dressing or bathing? Answer Date of Assessment Author Status Yes 10/24/2022 4:23 PM CDT Harini Ovalles R N Active * Because of a physical, mental, or emotional condition, do you have difficulty doing errands alone such as visiting a doctor's office or shopping? Answer Date of Assessment Author Status Yes 10/20/2022 5:00 PM SUPERVISOR SCREEN MAKING Steven Galicia RN Active documented as of [...] st Contact Info) Description 08/16/2025 1:00 PM SUPERVISOR SCREEN MAKING Office Visit [facility] [address] [place] [phone] Viviana Steele FNP [address] [facility] [address] [place] [address] documented as of this encounter Goals Goal Patient Goal Type Associated Problems Recent Progress Patient-Stated? Author Health - patient able to perform ADLs independently General No Indu George, RN documented as of this encounter Visit Diagnoses Not on filedocumented in this encounter Care Teams Equipment Washer Relationship Specialty Start Date End Date Janina Cruz, PAMarco AntonioC [address] [place] [address] [address] [place] [address] PCP - General PHYSICIAN RETURN TO VENDOR 01/27/24 documented as of this encounter
--- OUTSIDE RECORDS SUMMARY | 2025-03-03 15:29 | XMS_ITS ---
Author Organization [facility] Address [address] [place] [address] Care Team Providers Care Tape Maker Name Role Phone Maurice Ojeda MD Unavailable [phone] Anna Barillas MD Unavailable [phone] Luis Miguel Perkins MD Unavailable [phone] Cachorro Lovell MD Primary Care Provider [phone] Steven Odonnell MD Unavailable [phone] Sandra Sheppard MD Unavailable [phone] Miscellaneous, Not In File Unavailable Unava ilable [...] implantable loop record er 11/17/2021 Overview (11/17/2021): [employer] Biomonitor III Loop Recorder. Dx; Stroke. DOI 11/16/2021-[facility]. [employer] remote home monitoring. History of multiple strokes [...]
--- OUTSIDE RECORDS SUMMARY | 2025-03-03 15:29 | XMS_ITS | Clinical Summary ---
Author Organization [facility] Address [address] [place] [address] Care Team Providers Care Cloth Calender Name Role Phone Janina Cruz PA-C Primary Care Provider [phone] Allergies Active Allergy Reactions Criticality Noted Date [...] mouth 2 (two) times daily. Active Multiple Vitamins-[place] als (ICAPS) Tab Take 1 tablet by [...] 02/03/20 25 Discontin ued(Thera py completed ) Active Problems Problem Noted Date Diagnosed Date Interstitial pneumonia with autoimmune features ([facility] HHS/HCC) 09/09/2023 History of mitral valve repl acement with bioprosthetic valve 09/09/2023 CVA (cerebral vascular accident) ([facility] HHS/HC C) 10/20/2022 PNA (pneumonia) 10/17/2022 CHO (dyspnea on exertion) 09/19/2022 History of COVID-19 09/19/2022 Morbid (severe) obesity due to excess calories 0 09/19/[address] scan of lung 03/13/2022 Atherosclerosis of both carotid arteries 022 H/O bacterial endocarditis 03/13/2022 Status post placement of implantable loop record er 11/17/2021 Overview (10/20/2022): A [employer] Biomonitor III Loop Recorder. Dx; Stroke. DOI 11/16/2021-[facility]. [employer] remote home monitoring. Hyperlipidemia associated wi th type 2 diabetes mellitus ([facility] HHS/[facility]) 11/08/2021 Confusion 10/20/2021 Hypertension associated with diabetes ([facility] H HS/[facility]) 05/04/2016 Resolved Problems Problem Noted Date Diagnosed Date Resolved Date Chest pain in adult 02/24/2021 09/09/19 24 Nonrheumatic mitral valve stenosis 02/24/2021 09/09/2023 Encounters Date Type Department Care Team Description 02/01/2025 1:06 PM CDT - 02/01/2025 11:59 PM CDT Hospital Encounter [facility] Diagnostic Imaging [address] [place] [address] Samara Elkins MD Discharge Disposition: Home or Self Care (Routine Discharge) 02/01/2025 1:00 PM CDT Office Visit [facility] [address] [place] [phone] Samara Elkins MD Neurologic Problem; Mitral Valve Disorders 02/01/2025 Results Follow-Up [facility] [address] [place] [address] Tami Schulte RN XR CHEST PA+LAT 02/01/2025 Travel 01/11/2025 Telephone [facility] [facility], [place] [address] [place] [address] 47 Manuela Murillo RN Concerns 01/08/2025 Telephone [facility] [address], [facility] [address] [place] [address] Adrienne De La Fuente MA Information 12/22/2024 8:45 AM CDT - 12/22/2024 11:59 PM CDT Hospital Encounter [facility] [address] [place] [address] Flor Anderson MD Discharge Disposition: Home or Self Care (Routine Discharge) 12/22/2024 Orders Only [facility] [address] [place] [address] Flor Anderson MD 12/22/2024 Travel from Last 3 Months Immunizations Immunization [...] How often do you attend chur or restorationism services? More than 4 times per year 10/20/2022 Do you belong to any clubs o r organizations such as quaker groups, unions, fraternal or athletic groups, or [...] Recorded Patient Health Questionnaire-2 Score 0 12/20/2023 [facility] of Occupat ional Health - Occupational Stress [...] Sex Assigned at Female 08/26/2024 8:59 AM VISCOSITY WORKER Legal Sex Female 7:07 PM CDT Gender [...] st Contact Info) Description 08/16/2025 1:00 PM VISCOSITY WORKER [facility] [address] [place] [address] Viviana Steele, JOAN [address] [place] [address] [address] [place] [address] Health Maintenance Due Date Last Done Comments [...] Additional history exists ASCVD LDL 10/19/2023 10/18/2022, 02/09, 10/21/2021, Additional history exists Lipid Panel 02/14/2024 02/13/2023, 0304/2023, 02/27/2022, Additional history exists PHQ-2 (Physician [place]) 08/12/2024 12/20/2023 Pneumococcal Vaccine: 50+ Years Completed [...] ADLs independently General No Indu George, RN Medical Devices Implanted Type Area Rattle Leak And Squeak Repairer Device Identifier Shelf Expiration Date Model / Serial / Lot Implantable Loop Recorder-Biotro meagan-Mri- 2 Implanted:Qty: 1 on 11/16/2021 Implantable Loop Recorder Procedures Procedure Name Priority Date/Time Associated Diagnosis Comments XR CHEST PA+LAT Routine 02/01/2025 1:16 PM CDT Shortness of breath Interstitial lung disease ([facility]/HCC [facility]) S/P MVR (mitral valve replacement) BASIC METABOLIC PANEL Routine 12/22/2024 9:07 AM CDT ILD (interstitial lung disease) (CMS/HCC HHS/HCC) High risk medication use Elevated serum creatinine CT ABD+PEL KIDNEY STONE STAT 10/26/2024 9:18 PM CDT HEMOGLOBIN, GLYCOSYLATED Routine 03/04/2023 LIPID PANEL Routine 10/18/2022 5:22 AM VISCOSITY WORKER from Last 3 Months or Most Recently Relevant to Health Maintenance Results * XR CHEST PA+LAT (02/01/2025 1:16 PM CDT) Anatomical Region Laterality Modality Chest Radiographic Cele ging 02/01/2025 2:08 PM CDT Impressions 02/01/2025 2:08 PM CDT IMPRESSION: Stable chest Ordered By: SAMARA ELKINS Interpreted By: Josr Hendrickson MD, 02/01/2025 2:08 PM Narrative 02/01/2025 2:08 PM CDT [address] [place] [address] 2 VIEWS OF THE CHEST Clinical history: Shortness of breath Comparison: July 23, 2024 2 views of the chest demonstrate the cardiac silhouette to be within normal limits for size and appears stable. Sternotomy changes are again noted. Diffuse interstitial prominence throughout the lungs is unchanged. No areas of consolidation are seen Procedure Note Josr Hendrickson MD - 02/01/[address] [place] [address] 2 VIEWS OF THE CHEST Clinical history: [...] - 99 MG/DL 12/22/2024 9:36 AM CDT [facility] BUN 34(H) 7 - 18 MG/DL 12/22/2024 9:36 AM T [facility] CREATININE S/P/B 0.99 0.55 - 1.02 MG/DL 12/22/2024 9:36 AM T [facility] SODIUM S/P/B 140 136 - 145 MMOL/L 12/22/2024 9:36 AM CDT [facility] POTASSIUM S/P/B 4.2 3.5 - 5.1 MMOL/L 12/22/2024 9:36 AM T [facility] CHLORIDE S/P/B 105 100 - 108 MMOL/L 12/22/2024 9:36 AM T [facility] CO2 28.0 21 - 32 MMOL/L 12/22/2024 9:36 AM T [facility] CALCIUM S/P/B 9.8 8.5 - 10.1 MG/DL 12/22/2024 9:36 AM T [facility] ANION GAP 7.0 5 - 15 MMOL/L 12/22/2024 9:36 AM T [facility] BUN CREATININE RATIO 34.3(H) 6 - 26 12/22/2024 9:36 AM T [facility] GFR ESTIMATE 59(L) >90 ML/MIN/1.7 3 M2 12/22/2024 9:36 AM CDT [facility] Comment: NOTE: eGFR is not calculated for patients <18 years of age. This is an estimated GFR calculation using the new CKD EPI creatinine equation without race and so does not require a correction factor for race. This estimated GFR should not be used for calculating drug doses. 12/22/2024 9:07 AM CDT Flor Anderson MD LABORATORY Final Result [facility] [address] [place] [address], [place] [phone] * CT ABD+PEL KIDNEY STONE (10/26/2024 9:18 PM CDT) Anatomical Region Laterality Modality Abdomen Computed Tomogra phy 10/26/2024 9:22 PM CDT Impressions 10/26/2024 9:25 PM CDT IMPRESSION: 1. Bulky left-sided nonobstructing kidney stone. No evidence of right kidney stone Ordered By: ABRAN CASIANO Interpreted By: Josr Hendrickson MD, 10/26/2024 9:22 PM Narrative 10/26/2024 9:[address] [facility] [address] [facility] [place] [id number] ABDOMEN AND PELVIS WITHOUT CONTRAST Clinical [...] Procedure Note Josr Hendrickson MD - 10/26/2024 [facility] [address] [place] [address] CT ABDOMEN AND PELVIS WITHOUT CONTRAST Clinical [...] By: Josr Hendrickson MD, 10/26/2024 9:22 PM us Abran Casiano MD CT Final Resul t * HEMOGLOBIN, GLYCOSYLATED (03/04/2023) [facility] HGB A1C 6.6 % us Default History Genericprovider LABORATORY Final Result * (ABNORMAL) LIPID PANEL (10/18/2022 5:22 AM VISCOSITY WORKER) [facility] CHOLESTEROL 131 <200.0 MG/DL 10/18/2022 6:33 AM [facility] TRIGLYCERIDES 75 <150 MG/DL 10/18/2022 6:33 AM [facility] HDL 36(L) >40.0 MG/DL 10/18/2022 6:33 AM [facility] LDL (CALCULATED) 80 <100 MG/DL 10/19/19 6:33 AM [facility] NON HDL CHOLESTEROL 95 <130 MG/DL 10/18 6:33 AM [facility] CHOL/HDL RATIO 3.6 0.0 - 4.5 10/18/2022 6:33 AM [facility] VLDL CALCULATION 15 5 - 55 MG/DL 10/18/2022 6:33 AM [facility] LIPID INTERPRETATION 10/18/2022 6:33 AM [facility] Comment: [facility] CONCENSUS REPORT RECOMMENDATIONS: ADULT CHILD LOW RISK: CHOLESTEROL <200 <170 TRIGLYCERIDE <150 --- HDL >=60 --- LDL <100 <110 BORDERLINE: CHOLESTEROL 200-239 170-199 TRIGLYCERIDE 150-199 --- HDL 40-59 --- LDL 100-159 110-129 HIGH RISK: CHOLESTEROL >=240 >=200 TRIGLYCERIDE >=200 --- HDL <40 --- LDL >=160 >=130 10/18/2022 5:22 AM VISCOSITY WORKER Eliane Iverson NP LABORATORY Final Resul t Performing Organization Address City/State/[facility] Co de Phone Number [facility] [address] [place] [address], from Last 3 Months or Most Recently Relevant to Health Maintenance Insurance MEDICARE [employer] Advance Directives * Full Code (Latest Code Status on File) Date Activated Date Inactivated Comments 10/20/2022 4:18 PM 10/30/2022 7:36 PM * Full Code Date Activated Date Inactivated Comments 10/17/2022 1:20 PM 10/20/2022 4:07 PM * Full Code Date Activated Date Inactivated Comments 10/20/2021 9:56 AM 10/21/2021 8:29 PM Care Teams Cloth Calender Relationship Specialty Start Date End Date Janina Cruz PA-C [address] [place] [address] PCP - General PHYSICIAN FANS CLERK 01/27/24
--- OUTSIDE RECORDS SUMMARY | 2025-03-03 15:29 | XMS_ITS | Clinical Summary ---
Author Organization [facility] Address [address] [place] [address] Care Team Providers Care Shine Worker Name Role Phone Maurice Ojeda MD Unavailable [phone] Anna Barillas MD Unavailable [phone] Luis Miguel Perkins MD Unavailable Cachorro Lovell MD Primary Care Provider [phone] Steven Odonnell MD Unavailable [phone] Sandra Sheppard MD Unavailable [phone] Miscellaneous, Not In File Unavailable Unava ilable [...] times a day 180 tablet 1 5 Active Active Problems Problem Noted Date Diagnosed Date [...] implantable loop record er 11/17/2021 Overview (11/17/2021): [employer] Biomonitor III Loop Recorder. Dx; Stroke. DOI 11/16/2021-[facility]. [employer] remote home monitoring. History of multiple strokes [...] Type Department Care Team Description 02/02/2025 Telephone [facility] Rheumatology [address] [place] [address] [place] [address] Flor Anderson MD Medical Records Request 01/29/2025 10:34 AM CDT - 01/29/2025 11:59 PM CDT Hospital Encounter [address] [address] ILD (interstitial lung disease) (HCC); High risk medication use Discharge Disposition: Discharge to home or self care 01/29/2025 10:15 AM CDT Lab [facility] Endocrinology Metabolism and Lipid [address] [place] [address] [place] [address] ILD (interstitial lung disease) (HCC); High risk medication use 01/29/2025 9:30 AM CDT Office Visit [facility] Rheumatology [address] [place] [address] [place] [address] ILD (interstitial lung disease) (HCC) (Primary Dx); High risk medication use; Osteoarthritis of both knees, unspecified osteoarthritis type; Low back pain, unspecified back pain laterality, unspecified chronicity, unspecified whether sciatica present 12/08/2024 Telephone [facility] Rheumatology [address] [place] [address] [place] [address] Flor Anderson MD from Last 3 Months Surgical History Surgery Date Site/Laterality Comments MA TONSILLECTOMY PRIMARY/SEC ONDARY <AGE 13 Tonsillectomy - (Added by Conv) MA TOTAL ABDOMINAL HYSTERECT W/WO RMVL TUBE OVARY Hysterectomy - (Added by TW Conv) SHOULDER SURGERY CARDIAC VALVE REPLACEMENT Medical History Medical History Date Comments Personal history of other ve nous thrombosis and embolism H/O blood clots - (Added by TW Conv) Endometrial cancer (HCC) s/p hys terectomy, radiation tx, 2nd round in 2018 Diabetes ([facility]) Hypertension Psoriasis Heart valve problem Cataracts, bilateral Uterine cancer (HCC) 2016 IB, s/p hys terectomy. Local recurrence 2018 tx'd w/ radiation and brachyTx. Vee Silva Stroke ([facility]) bilateral lacuna r infarcts Diastolic dysfunction Covid-19 10/2021 Mitral insufficiency Stroke ([facility]) October 2021 and M arch 2022 - [...] history of lung cancer - (Added by Conv) Arthritis Sister Relation Name Status Comments [...] on file Legal Sex Female 11:53 AM HITTING COACH Gender Identity Not on file Sexual Orientation [...] CDT Oxygen Saturation 97% 09/20/2023 10:54 AM HITTING COACH Inhaled Oxygen Concentration - - Weight 90.7 [...] Completed 03/01/2023 Medical Devices Implanted Type Area Construction Carpenter Device Identifier Shelf Expiration Date Model / Serial / Lot Markers Cervix Portacath Left: Chest [employer] Johnson Ii Cinch 27mm 19mm Bioprosthesis Stented Lamb Valve [id number] - [id number] - [id number] Implanted:Qty: 1 on 02/15/2023 by Sandra Sheppard MD at [facility] N/A: Heart [employer] [id number] 04/09/2025 [id number] / [id number] / Procedures Procedure Name Priority Date/Time Associated [...] 2 diabetes mellitus without complication, unspecified whether termite control servicer insulin use (HCC) HEPATITIS PANEL, ACUTE Routine 03/01/2023 9:14 AM CDT ILD (interstitial lung disease) (HCC) LIPID PANEL STAT 02/13/2023 2:30 PM CDT COLONOSCOPY REPORT 05/16/2016 from Last 3 Months or Most Recently Relevant to Health Maintenance Results * Urinalysis reflex to microscopic and culture Urine, clean voided (01/29/2025 11:52 AM CDT) Color, ur Straw Yellow Clarity, ur Clear Clear [facility] Specific gravity, ur 1.013 1.003 - 1.030 [facility] pH, urine 6.0 [facility] Comment: Interpretive Data U rine pH is affected by diet, medications, systemic acid-base disturbances, and renal tubular function. pH may affect urinary stone formation. For example, urine pH below 6.0 may help reduce the tendency for calcium phosphate stones and pH greater than 6.0 may reduce the tendency for uric acid stone formation. Source: [facility] Current Interpretive Data was last revised on 2017 Protein, ur ql Negative Negative [facility] Glucose, ur ql Negative Negative [facility] Ketones, ur Negative Negative [facility] Bilirubin, ur Negative Negative [facility] Blood, ur Negative Negative [facility] Urobilinogen, ur <2.0 <2.0 mg/dL [facility] Nitrite, ur Negative Negative [facility] Leukocyte esterase, ur Negative Negative [facility] UA reflex comment Reflex conditions for microscopic UA and culture not met. [facility] Urine, clean voided 01/29/2025 11:52 AM CDT 01/29/2025 12:05 PM CDT us Flor Anderson MD LAB MICROBIOLOGY - GENERAL ORDER JUAN Final Result [facility] [place] [address] * Protein / creatinine ratio, urine, random (01/29/2025 11:52 AM CDT) Protein, ur, quant <5.0 mg/dL Comment: Interpretive Data No reference range established. Current interpretive data was last revised 2018. Creatinine Ur 35.0 mg/dL [facility] Comment: Interpretive Data No reference range established. Current interpretive data was last revised 2018. Protein/creatinin e ratio <142.9 0.0 - 180.0 mg/g CR [facility] Urine 01/29/2025 11:5 2 AM CDT 01/29/2025 12:05 PM CDT Flor Anderson MD LAB URINE ORDERABLES Final Resul t Performing Organization Address City/[facility]/ZIP Co de Phone Number [facility] [address] [facility] Department [place] [address] * (ABNORMAL) Erythrocyte sedimentation rate (01/29/2025 10:33 AM CDT) Pathologist [facility] Erythrocyte Sedimentation Rate 82(H) <30 mm/hr [facility] Blood 01/29/2025 10:3 3 AM CDT 01/29/2025 12:38 PM CDT Flor Anderson MD LAB BLOOD ORDERABLES Final Resul t Performing Organization Address City/[facility]/ZIP Co de Phone Number [facility] CORE [facility] * CRP (acute phase) (01/29/2025 10:33 AM CDT) C-Reactive Protein, Acute 3.7 <5.0 mg/L [facility] Blood 01/29/2025 10:3 3 AM CDT 01/29/2025 12:38 PM CDT Flor Anderson MD LAB BLOOD ORDERABLES Final Resul t [facility]ORE [facility] * (ABNORMAL) [...] 3 AM CDT 01/29/2025 12:38 PM CDT us Flor Anderson MD LAB BLOOD ORDERABLES Final Resul t Performing Organization Address City/State/[facility] Co de Phone Number [facility] * (ABNORMAL) Hemoglobin A1c (03/27/2023 12:05 PM CDT) Hgb A1C 7.0(H) 4.0 - 5.6 % [facility] Estimated Average Glucose 154 mg/dL [facility] Comment: The ADA recommends reporting an estimated [...] BLOOD ORDERABLES Final Result Performing Organization Address City/[facility] de Phone Number [facility] Department [place] [address] * Hepatitis panel, acute (03/01/2023 9:14 AM CDT) Hep A IgM Nonreactive Nonreactive [facility] Hep B core IgM Nonreactive Nonreactive [facility] Hep C Ab Nonreactive Nonreactive [facility] Comment:Antibodies to HCV no t detected. Does NOT exclude the possibility of recent exposure to HCV. Current interpretive data was last revised on 22 HepBsAg Nonreactive Nonreactive [facility] Blood 03/01/2023 9:14 AM CDT 03/01/2023 11:18 AM CDT Flor Anderson MD LAB MICROBIOLOGY - GENERAL ORDER JUAN Final Result Performing Organization Address [facility] de Phone Number [facility] Department [place] [address] * (ABNORMAL) Lipid panel (02/13/2023 2:30 PM CDT) Cholesterol 97 30 - 199 mg/dL [facility] Comment: Interpretive Data Ages < or [...] revised on 2018. Triglycerides 78 <=149 mg/dL [facility] Comment: Interpretive Data Ages < or [...] revised on 2018. HDL 38(L) >=40 mg/dL [facility] Comment: Interpretive Data Ages < or [...] on 2018. LDL, calculated 43 <=129 mg/dL [facility] Comment: Interpretive Data Ages < or [...] Pediatrics 2011;128:S213 2. NCEP Expert Panel. Circulation 2003;110:227 Current Interpretive Data was last revised on 2018. Non-HDL Cholesterol 59 mg/dL [facility] Comment: Interpretive Data Ages < or [...] Pediatrics 2011;128:S213 2. NCEP Expert Panel. Circulation 2003;110:227 Current Interpretive Data was last revised on 2018. Chol/HDL ratio 3 [facility] Blood 02/13/2023 2:30 PM CDT 02/13/2023 2:45 PM CDT us Barbara Carrasquillo FUEL AGENT LAB BLOOD ORDERA BLES Final Result [facility] [place] [address] * COLONOSCOPY REPORT (05/16/2016) Anatomical Region Laterality Modality Other Narrative 05/16/2016 Ordered by an unspecified provider. us Historical Provider GI PROCEDURE ORDERABLES F inal Result from Last 3 Months or Most Recently Relevant to Health Maintenance Insurance [facility] MEDICARE MEDICARE [employer] [facility] MEDICARE MEDICARE [facility] Advance Directives For more information, please contact: [phone] Documents on File Type Date Recorded Patient Tobacco Stripper Hand Expl anation ADVANCE DIRECTIVE 11/27/2021 12:32 PM [facility] [employer] * Full Code (Latest Code Status on File) Date Activated Date Inactivated Comments 02/13/2023 12:26 PM 02/27/2023 8:34 PM * Full Code Date Activated Date Inactivated Comments 12/18/2022 3:06 PM 12/18/2022 10:50 PM * Full Code Date Activated Date Inactivated Comments 11/18/2021 3:23 AM 11/25/2021 1:17 AM * Full Code Date Activated Date Inactivated Comments 05/06/2018 11:55 AM 05/09/2018 4:22 PM Care Teams Shine Worker Relationship Specialty Start Date End Date Cachorro Lovell MD [facility] [place] [address] PCP - General Family Medicine 09/19/22 Maurice Ojeda MD [address] [facility] [id number] [place] [address] Referring Physician Gynecologic Oncology 05/06/18 Anna Barillas MD [address] [facility] [id number] [place] [address] Consulting Physician Cardiology 11/24/21 [place] [address] [place] [address] Consulting Physician Internal Medicine 11/24/21 Steven Odonnell MD [address] [place] [address] Pulmonary Disease 12/10/22 Sandra Sheppard MD [address] [place] [address] Surgeon Cardiothoracic Surgery 02/27/23 Miscellaneous, Not In File 02/27/23
--- OUTSIDE RECORDS SUMMARY | 2025-03-03 15:29 | XMS_ITS | Referral Summary ---
Author Organization [facility] al Address [address] [place] [address] Care Team Providers Care Route Driver Coin Machines Name Role Phone Maurice Ojeda MD Unavailable [phone] Anna Barillas MD Unavailable [phone] Luis Miguel Perkins MD Unavailable [phone] Cachorro Lovell MD Primary Care Provider [phone] Steven Odonnell MD Unavailable [phone] Sandra Sheppard MD Unavailable [phone] Miscellaneous, Not In File Unavailable Unava ilable Encounters Date Type Department Care Team Description 02/02/2025 Telephone [facility] Rheumatology [address] [place] [address] [place] [address] Flor Anderson MD Medical Records Request 01/29/2025 10:34 AM CDT - 01/29/2025 11:59 PM CDT Hospital Encounter [facility] [address] [place] [address] ILD (interstitial lung disease) (HCC); High risk medication use Discharge Disposition: Discharge to home or self care 01/29/2025 10:15 AM CDT Lab [facility] Endocrinology Metabolism and Lipid [address] [place] [address] [place] [address] ILD (interstitial lung disease) ([facility]); High risk medication use 01/29/2025 9:30 AM CDT Office Visit [facility] Rheumatology [facility] [place] [address] [place] [address] ILD (interstitial lung disease) ([facility]) (Primary Dx); High risk medication use; Osteoarthritis of both knees, unspecified osteoarthritis type; Low back pain, unspecified back pain laterality, unspecified chronicity, unspecified whether sciatica present 12/08/2024 Telephone [facility] Rheumatology [facility] [place] [address] [place] [address] Flor Anderson MD from Last [...] implantable loop record er 11/17/2021 Overview (11/17/2021): [email or web address] Biomonitor III Loop Recorder. Dx; Stroke. DOI 11/16/2021-[facility]. Biotronik remote home monitoring. 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 Gender Identity Not on file Sexual Orientation [...] CDT Oxygen Saturation 97% 09/20/2023 10:54 AM BUILDING EQUIPMENT OPERATOR Inhaled Oxygen Concentration - - Weight 90.7 kg (200 lb) 01/29/2025 9:11 AM CDT Height 152.4 cm (5') 01/29/2025 9:11 AM CDT Body Mass Index 39.06 01/29/2025 9:11 AM CDT Plan of Treatment Not on file Medical Devices Implanted Type Area Critical Care Nurse Practitioner Device Identifier Shelf Expiration Date Model / Serial / Lot Markers Cervix Portacath Left: Chest [employer] Johnson Ii Cinch 27mm 19mm Bioprosthesis Stented Lamb Valve [id number] - [id number] - [id number] Implanted:Qty: 1 on 02/15/2023 by Sandra Sheppard MD at [facility] N/A: Heart [employer] [id number] 04/09/2025 [id number] / [id number] / Procedures Procedure Name Priority Date/Time Associated [...] 2 diabetes mellitus without complication, unspecified whether long chain quiller tender insulin use (HCC) HEPATITIS PANEL, ACUTE Routine 03/01/2023 9:14 AM CDT ILD (interstitial lung disease) (HCC) LIPID PANEL STAT 02/13/2023 2:30 PM CDT COLONOSCOPY REPORT 05/16/2016 from Last 3 Months or Most Recently Relevant to Health Maintenance Results * Urinalysis reflex to microscopic and culture Urine, clean voided (01/29/2025 11:52 AM CDT) Color, ur Straw Yellow Clarity, ur Clear Clear [facility] Specific gravity, ur 1.013 1.003 - 1.030 [facility] pH, urine 6.0 [facility] Comment: Interpretive Data U rine pH is affected by diet, medications, systemic acid-base disturbances, and renal tubular function. pH may affect urinary stone formation. For example, urine pH below 6.0 may help reduce the tendency for calcium phosphate stones and pH greater than 6.0 may reduce the tendency for uric acid stone formation. Source: [facility] Current Interpretive Data was last revised on 2017 Protein, ur ql Negative Negative [facility] Glucose, ur ql Negative Negative [facility] Ketones, ur Negative Negative [facility] Bilirubin, ur Negative Negative [facility] Blood, ur Negative Negative [facility] Urobilinogen, ur <2.0 <2.0 mg/dL [facility] Nitrite, ur Negative Negative [facility] Leukocyte esterase, ur Negative Negative [facility] UA reflex comment Reflex conditions for microscopic UA and culture not met. [facility] Urine, clean voided 01/29/2025 11:52 AM CDT 01/29/2025 12:05 PM CDT Flor Anderson MD LAB MICROBIOLOGY - GENERAL ORDER JUAN Final Result [facility] Department [place] [address] * Protein / creatinine ratio, urine, random (01/29/2025 11:52 AM CDT) Protein, ur, quant <5.0 mg/dL Comment: Interpretive Data No reference range established. Current interpretive data was last revised 2018. Creatinine Ur 35.0 mg/dL [facility] Comment: Interpretive Data No reference range established. Current interpretive data was last revised 2018. Protein/creatinin e ratio <142.9 0.0 - 180.0 mg/g CR [facility] Urine 01/29/2025 11:5 2 AM CDT 01/29/2025 12:05 PM CDT Flor Anderson MD LAB URINE ORDERABLES Final Resul t [facility] Department [place] [address] * (ABNORMAL) Erythrocyte sedimentation rate (01/29/2025 10:33 AM CDT) Erythrocyte Sedimentation Rate 82(H) <30 mm/hr [facility] Blood 01/29/2025 10:3 3 AM CDT 01/29/2025 12:38 PM CDT Flor Anderson MD LAB BLOOD ORDERABLES Final Resul t Performing Organization Address City/[facility] Co de Phone Number [facility] * CRP (acute phase) (01/29/2025 10:33 AM CDT) C-Reactive Protein, Acute 3.7 <5.0 mg/L [facility] Blood 01/29/2025 10:3 3 AM CDT 01/29/2025 12:38 PM CDT Flor Anderson MD LAB BLOOD ORDERABLES Final Resul t Performing Organization Address [facility] de Phone Number [facility] * (ABNORMAL) [...] MD LAB BLOOD ORDERABLES Final Resul t [facility] * (ABNORMAL) Hemoglobin A1c (03/27/2023 12:05 PM CDT) Hgb A1C 7.0(H) 4.0 - 5.6 % [facility] Estimated Average Glucose 154 mg/dL [facility] Comment: The ADA recommends reporting an [...] Aldana NP LAB BLOOD ORDERABLES Final Result [facility] One [facility] Department [place] [address] * Hepatitis panel, acute (03/01/2023 9:14 AM CDT) Pathologist [facility] Hep A IgM Nonreactive Nonreactive [facility] Hep B core IgM Nonreactive Nonreactive [facility] Hep C Ab Nonreactive Nonreactive [facility] Comment:Antibodies to HCV no t detected. Does NOT exclude the possibility of recent exposure to HCV. Current interpretive data was last revised on 22 HepBsAg Nonreactive Nonreactive [facility] Blood 03/01/2023 9:14 AM CDT 03/01/2023 11:18 AM CDT us Flor Anderson MD LAB MICROBIOLOGY - GENERAL ORDER JUAN Final Result [facility] Department [place] [address] * (ABNORMAL) Lipid panel (02/13/2023 2:30 PM CDT) Cholesterol 97 30 - 199 mg/dL [facility] Comment: Interpretive Data Ages < or [...] revised on 2018. Triglycerides 78 <=149 mg/dL [facility] Comment: Interpretive Data Ages < or [...] revised on 2018. HDL 38(L) >=40 mg/dL [facility] Comment: Interpretive Data Ages < or [...] on 2018. LDL, calculated 43 <=129 mg/dL [facility] Comment: Interpretive Data Ages < or [...] revised on 2018. Non-HDL Cholesterol 59 mg/dL [facility] Comment: Interpretive Data Ages < or [...] last revised on 2018. Chol/HDL ratio 3 [facility] Blood 02/13/2023 2:30 PM CDT 02/13/2023 2:45 PM CDT us Barbara Carrasquillo POLICE RECORDS CLERK LAB BLOOD ORDERA BLES Final Result [facility] [place] [address] * COLONOSCOPY REPORT (05/16/2016) Anatomical Region Laterality Modality Other Narrative 05/16/2016 Ordered by an unspecified provider. 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 Expl anation ADVANCE DIRECTIVE 11/27/2021 12:32 PM LYNDON R OF [employer] PROFESSOR-MEDICAL * Full Code (Latest Code Status on File) Date Activated Date Inactivated Comments 02/13/2023 12:26 PM 02/27/2023 8:34 PM * Full Code Date Activated Date Inactivated Comments 12/18/2022 3:06 PM 12/18/2022 10:50 PM * Full Code Date Activated Date Inactivated Comments 11/18/2021 3:23 AM 11/25/2021 1:17 AM * Full Code Date Activated Date Inactivated Comments 05/06/2018 11:55 AM 05/09/2018 4:22 PM Care Teams Route Driver Coin Machines Relationship Specialty Start Date End Date Cachorro Lovell MD [address] [place] [address] PCP - General Family Medicine 09/19/22 Maurice Ojeda MD [address] [facility] [phone] [place] [address] Referring Physician Gynecologic Oncology 05/06/18 Anna Barillas MD [address] [facility] [id number] [place] [address] Consulting Physician Cardiology 11/24/21 [place] [address] [place] [address] Consulting Physician Internal Medicine 11/24/21 Steven Odonnell MD [address] [place] [address] Pulmonary Disease 12/10/22 Sandra Sheppard MD [address] [address] Surgeon Cardiothoracic Surgery 02/27/23 Miscellaneous, Not In File 02/27/23
--- OUTSIDE RECORDS SUMMARY | 2025-03-03 15:29 | XMS_ITS ---
Author Name Auto Generated, Auto Generated Organization [facility] Address [address] [place] [address] Phone [phone] Care Team Providers Care Micromatic Hone Operator Name Role Phone Robert Peters Unavailable Anish Woods Unavailable [phone] Functional Status No Results Mental Status No [...] 8.6 mg tablet 1 TAB TABLET Oral VA N 2 Times Daily Indication: CONSTIPATION SatFeb [...] as directed) SatFeb 28 01:00:00 EDT 2022 [facility] Feb 28 12:09:00 EDT 2022 potassium [...] * Text: * Atherosclerotic heart disease of [place] coronary artery without angina pectoris* Code: * [...] 2022 * End Date: * Text: * 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
--- OUTSIDE RECORDS SUMMARY | 2025-03-03 15:29 | XMS_ITS | Encounter Summary ---
Author Organization [facility] Address [address] [place] [address] Care Team Providers Care Oil Field Technician Name Role Phone Sona Collier MD Primary Care Provider [phone] Eliane Roger DO Primary Care Provider [phone] Cachorro Lovell MD Primary Care Provider [phone] Janina Cruz PA-C Primary Care Provider [phone] Encounter Details Date Type Department Care Team (Late st Contact Info) Description 04/10/2016 Abstract [facility] CONVERSION [address] [place], [place] [id number] , Kristopher Azul MD Social History Tobacco Use Types Packs/Day Years Used Date Smoking Tobacco: Never Assessed Comments Unknown Sex and Gender Information Value Date Recorded Sex Assigned at Female 08/26/2024 8:59 AM VALVE MAKER Legal Sex Female 7:07 PM CDT Gender Identity Not on file Sexual Orientation Not on file documented as of this encounter Plan of Treatment Upcoming Encounters Date Type Department Care Team (Late st Contact Info) Description 08/16/2025 1:00 PM VALVE MAKER Office Visit [facility] [address] [place] [address] Viviana Steele, JOAN [address] [place], [place] [address] [place], [place] [address] documented as of this encounter Visit Diagnoses Not on filedocumented in this encounter Additional Health Concerns Infection Onset Date Last Indicated Resolved Time COVID-19 Rule Out 10/17/2022 10/17/2022 10/17/2022 5:16 PM VALVE MAKER COVID-19 Rule Out 10/17/2022 10/18/2022 10/18/2022 12:17 PM VALVE MAKER COVID-19 Rule Out 10/15/2023 10/15/2023 10/15/2023 1:11 PM VALVE MAKER COVID-19 Rule Out 07/23/2024 07/23/2024 07/23/2024 12:50 PM VALVE MAKER documented as of this encounter Care Teams Oil Field Technician Relationship Specialty Start Date End Date Sona Collier MD PCP - General FAMILY PRACTICE 04/09/19 09/07/20 Eliane Roger DO PCP - General FAMILY PRACTICE 09/08/20 10/16/22 Cachorro Lovell MD [address] [place] [address] PCP - General FAMILY PRACTICE 10/17/22 01/26/24 Janina Cruz PA-C [address] [place] [address] PCP - General PHYSICIAN SALES CLOSER 01/27/24 documented as of this encounter
--- OUTSIDE RECORDS SUMMARY | 2025-03-03 15:30 | XMS_ITS | Encounter Summary ---
Author Organization [facility] Address [address] [place] [address] Care Team Providers Care Dry Kiln Feeder Name Role Phone Cachorro Lovell MD Primary Care Provider [phone] Janina Cruz PA-C Primary Care Provider [phone] Encounter Details Date Type Department Care Team (Late st Contact Info) Description 08/22/2023 Abstract [facility] [address] Ciara Recinos [place] Social History Tobacco Use [...] often do you attend chur ch or scientology services? More than 4 times per year 10/20/2022 Do you belong to any clubs o r organizations such as samaritan groups, unions, fraternal or athletic groups, or [...] and heating? Not hard at all 10/20/2022 [facility] - Occupational Stress [...] place to sleep or slept in a group home (including now)? Yes 10/20/2022 Comments No Sex and Gender Information Value Date Recorded Sex Assigned at Female 08/26/2024 8:59 AM MASTER COSMETOLOGIST Legal Sex Female 7:07 PM CDT Gender [...] Assessment Author Status Yes 10/20/2022 5:00 PM MASTER COSMETOLOGIST Steven Galicia RN Active documented as of [...] st Contact Info) Description 08/16/2025 1:00 PM MASTER COSMETOLOGIST Office Visit [facility] [address] [place] [address] Viviana Steele, JOAN [address] [facility] [address] [place] [address] documented as of this encounter Goals Goal [...] Results * COMPREHENSIVE METABOLIC PANEL (03/04/2023) Pathologist [facility] GLUCOSE 126 mg/dL us Default History Genericprovider LABORATORY Final Result * CBC, MANUAL DIFF (03/04/2023) Pathologist [facility] WBC 7.0 HGB 8.8 HCT 28.2 PLT 326 us Default History Genericprovider LABORATORY Final Result * VITAMIN D, 25 OH (03/04/2023) VITAMIN D 25 HYDROXY S/P/B 66 03/04/2023 us Default History Genericprovider LABORATORY Final Result * URIC ACID BLOOD (03/04/2023) Pathologist [facility] URIC ACID 6.8 03/04/2023 us Default History Genericprovider LABORATORY Final Result * CBC, MANUAL DIFF (03/04/2023) Pathologist [facility] WBC 7.0 HGB 8.8 HCT 28.2 PLT 326 us Default History Genericprovider LABORATORY Final Result * HEMOGLOBIN, GLYCOSYLATED (03/04/2023) Pathologist [facility] HGB A1C 6.6 % us Default History Genericprovider LABORATORY Final Result * THYROID STIM HORMONE, TSH (03/04/2023) Pathologist [facility] TSH 0.87 us Default History Genericprovider LABORATORY Final Result documented in this encounter Visit Diagnoses Not on filedocumented in this encounter Additional Health Concerns Infection Onset Date Last Indicated Resolved Time COVID-19 Rule Out 10/15/2023 10/15/2023 10/15/2023 1:11 PM MASTER COSMETOLOGIST COVID-19 Rule Out 07/23/2024 07/23/2024 07/23/2024 12:50 PM MASTER COSMETOLOGIST documented as of this encounter Care Teams Dry Kiln Feeder Relationship Specialty Start Date End Date Cachorro Lovell MD [address] [place] [address] PCP - General FAMILY PRACTICE 10/17/22 01/26/24 Janina Cruz PA-C [address] [place], [place] [address] [place] [address] PCP - General PHYSICIAN LOGISTICS PROJECT MANAGER 01/27/24 documented as of this encounter
--- OUTSIDE RECORDS SUMMARY | 2025-03-03 15:30 | XMS_ITS ---
Author Name Auto Generated, Auto Generated Organization [facility] Address [address] [place] [address] Phone [phone] Care Team Providers Care Clerical Adviser Name Role Phone Robert Peters Unavailable [phone] Anish Woods Unavailable Functional Status No Results [...] 8.6 mg tablet 1 TAB TABLET Oral [place] N 2 Times Daily Indication: CONSTIPATION SatFeb [...] as directed) SatFeb 28 01:00:00 EDT 2022 [facility] Feb 28 12:09:00 EDT 2022 potassium [...] * Text: * Atherosclerotic heart disease of [place] coronary artery without angina pectoris* Code: * [...] 2022 * End Date: * Text: * terminal carman (current) use of aspirin* Code: * Start Date: SatFeb 27 00:00:00 EDT 2022 * End Date: * Text: * terminal carman (current) use of insulin* Code: * Start Date: SatFeb 27 00:00:00 EDT 2022 * End Date: * Text: Reason for Referral Past Medical History
== END 2025-03-03 15:26 | disposition home or self-care (01) ==
PROVIDERS: PCP Physician Assistant Medical; Visit Provider Physician Assistant Medical
DX: I63.9 Cerebral infarction, unspecified (principal); F03.90 Unspecified dementia, unspecified severity, without behavioral disturbance, psychotic disturbance, mood disturbance, and anxiety; R93.0 Abnormal findings on diagnostic imaging of skull and head, not elsewhere classified
CPT/HCPCS: 70553; A9577

== ENCOUNTER 2025-05-12 10:11 | Outpatient (CLI) | payer MEDICARE, OTHER, SELFPAY | END 2025-05-12 10:12 | disposition home or self-care (01) | LOC: ANHAUDASC 10:12 | PROVIDERS: PCP Physician Assistant Medical; Visit Provider Otolaryngology Otolaryngology/Facial Plastic Surgery | DX: H90.3 Sensorineural hearing loss, bilateral (principal) | CPT/HCPCS: 92557; 92567 ==

== ENCOUNTER 2025-06-23 18:23 | Emergency (ER) | payer MEDICARE, OTHER, SELFPAY ==
--- NOTE | 2025-06-23 18:29 | ED.GENADULT ---
HPI - General Adult General Chief complaint: Extremity Problem,Nontraumatic Stated complaint: Leg Pain Source: patient Mode of arrival: ambulatory Limitations: no limitations History of Present Illness HPI narrative: Pt is a 79 y/o female presenting with c/o leg pain. Patient's son reports evaluation at PCP office yesterday for increase in lower extremity edema with erythema. States she was told no infection, elevate her legs. Has been doubling up on lasix, elevating legs without improvement further stating that the erythema is much worse today. Denies constitutional sx. No additional complaints. Related Data Home Medications ?Medication ?Instructions ?Recorded ?Confirmed ?Last Taken ?Type acetaminophen 500 mg tablet 500 mg PO BID 08/18/20 06/22/25 11/16/21 History (Tylenol Extra Strength) aspirin 81 mg chewable tablet 81 mg PO DAILY 10/31/22 06/22/25 Unknown History vitamins A,C,Z-rkni-esjgei 4,296 1 cap PO BID 11/18/23 06/22/25 Unknown History mcg-226 mg-90 mg capsule (PreserVision AREDS) ascorbic acid (vitamin C) 1,000 mg 1 g PO DAILY 06/18/24 06/22/25 Unknown History capsule metoprolol succinate 50 mg 75 mg PO DAILY 09/28/24 06/22/25 Unknown History tablet,extended release 24 hr mycophenolic acid 180 mg BYMOUTH BID 09/28/24 06/22/25 Unknown History furosemide 20 mg tablet 20 mg PO QHS edema 03/16/25 06/22/25 Unknown History metformin 500 mg tablet,extended 500 mg PO QHS 03/16/25 06/22/25 Unknown History release 24 hr turmeric 400 mg capsule mg PO 03/16/25 06/22/25 Unknown History cholecalciferol (vitamin D3) 250 250 mcg PO DAILY 03/18/25 06/22/25 Unknown History mcg (10,000 unit) capsule cranberry extract 425 mg capsule 425 mg PO DAILY 03/18/25 06/22/25 Unknown History potassium chloride 10 mEq 15 meq PO DAILY 03/18/25 06/22/25 Unknown History tablet,extended release(part/cryst) NeuroSync Brain and Focus .Route 06/22/25 06/22/25 Unknown History Allergies Allergy/AdvReac Type Severity Reaction Status Date / Time adhesive tape Allergy Mild Rash Verified 06/18/25 08:51 Review of Systems Review of Systems: CONSTITUTIONAL: Denies body aches, fever, chills, or sweats. EYES: Denies visual changes, redness, or discharge. ENT: Denies rhinorrhea, congestion, sore throat, or otalgia. CARDIOVASCULAR: Reports raymundo. lower extremity edema. Denies chest pain, palpitations RESPIRATORY: Denies cough or dyspnea. GASTROINTESTINAL: Denies abdominal pain, nausea, vomiting, or diarrhea. GENITOURINARY: Denies dysuria or hematuria. SKIN: Reports erythema to raymundo. lower legs. Denies rash, itching, or wounds. MUSCULOSKELETAL: Denies back pain, joint pain, or myalgia. NEUROLOGIC: Denies headache, numbness, tingling, or weakness. PSYCH: Denies depression or anxiety. All systems reviewed & are unremarkable except as noted in HPI and below PMFSH Past Medical History Medical History (Updated 06/23/25 @ 18:51 by Martín Ferrer, INDUSTRIAL ENGINEER) Hypertrophy of both inferior nasal turbinates Deviated nasal septum Asymmetrical sensorineural hearing loss Dementia Anxiety and depression Interstitial pneumonia with autoimmune features Patient currently on mycophenolic acid from Rheumatology COPD (chronic obstructive pulmonary disease) Hyperlipidemia SBE (subacute bacterial endocarditis) Aortic stenosis Mitral stenosis CVA (cerebral vascular accident) Hospitalized at [facility] 10/20/2021 with confusion and dizziness. MRI showed multiple acute bilateral lacunar infarcts. Carotid ultrasound showed less than 50% stenosis, mild plaque. Endometrial cancer hysterectomy Iron deficiency anemia Vitamin B12 deficiency Vitamin D deficiency Cataracts, bilateral Normal colonoscopy (~2015) GERD (gastroesophageal reflux disease) Diabetes Essential hypertension (Unknown) Surgical History Surgical History History of loop recorder History of hysterectomy for cancer Hx of tonsillectomy Family History Family History Father Patient's father is in good health Hypertension Sibling Patient's sister is in good health Patient's brother is in good health Mother Family history of malignant neoplasm of breast Son Depression Social History Social History (Updated 06/22/25 @ 12:03 by Ephraim Tsai) Social History: 06/22/25 patient declined SDOH Caffeine-tea Second hand tobacco smoke exposure: Yes (at work) Alcohol intake: former Substance use: never Substance use type: does not use Do You Feel Safe in your Home?: Yes Lack of Transportation: No Lack of Food: Never True Current Housing: I Have Housing Concerned About Future Housing: No Difficulty Paying Gas/Electric Bills: No Difficulty Paying for Meds: No Currently Unemployed: No Education: High School Diploma/GED Difficulty w/ Childcare or Family Care: No Living arrangements: alone Occupation/Education: retired Gender identity (if verbalized by the patient): Female Sexual Orientation (if Verbalized by the Patient): Straight or Heterosexual Spiritual care concerns: No Agree to blood products: Yes Exam Narrative: GENERAL: Well-appearing, well-nourished, and in no acute distress. HEAD: Normocephalic, atraumatic. EYES: EOMI. No redness or drainage. Conjunctivae normal. ENT: Mucous membranes pink and moist. NECK: Normal AROM. Supple. CHEST: No respiratory distress. HEART: Regular rate Normal peripheral pulses. EXTREMITIES: Normal range of motion. 3+/4+ edema to bilateral lower legs SKIN: Warm, dry, no rash. Capillary refill normal. Normal skin turgor. There is blanchable, patchy erythema and increased warmth noted to anterior aspect of lower legs. There is xerosis to anterior aspect of lower legs. No weeping. No lymphatic streaking. No obvious open wounds. NEURO: No focal deficits. Alert and oriented x3. PSYCH: Normal affect. No signs of depression or anxiety. Course Course Level of Care: Express Care Visit Vital Signs Vital signs: Vital Signs Temperature 98.4 F 06/23/25 18:35 Pulse Rate 91 06/23/25 18:35 Respiratory Rate 16 06/23/25 18:35 Blood Pressure 148/59 H 06/23/25 18:35 Pulse Oximetry 96 06/23/25 18:35 Temperature 98.4 F 06/23/25 18:35 Pulse Rate 91 06/23/25 18:35 Respiratory Rate 16 06/23/25 18:35 Blood Pressure 148/59 H 06/23/25 18:35 Pulse Oximetry 96 06/23/25 18:35 Medical Decision Making MDM Narrative Medical decision making narrative: Discussed elevated blood pressure readings with patient and advised daily BP monitoring and f/u with PCP if persisting. Vital Signs Vital Signs: Vital Signs Temperature 98.4 F 06/23/25 18:35 Pulse Rate 91 06/23/25 18:35 Respiratory Rate 16 06/23/25 18:35 Blood Pressure 148/59 H 06/23/25 18:35 Pulse Oximetry 96 06/23/25 18:35 Temperature 98.4 F 06/23/25 18:35 Pulse Rate 91 06/23/25 18:35 Respiratory Rate 16 06/23/25 18:35 Blood Pressure 148/59 H 06/23/25 18:35 Pulse Oximetry 96 06/23/25 18:35 Discharge Plan Discharge Clinical Impression: Edema, Bilateral cellulitis of lower leg, HTN (hypertension) Patient Disposition: Home Condition: Stable Instructions: Antibiotic Form, Cellulitis (ED), Edema (ED) Additional Instructions: Go straight to ER should your symptoms become worse or should any new symptoms develop Patient Language: Argentine Prescriptions: New cephalexin 500 mg capsule 500 mg PO Q6H 7 Days Qty: 28 0RF No Action acetaminophen [Tylenol Extra Strength] 500 mg tablet 500 mg PO BID aspirin 81 mg tablet,chewable 81 mg PO DAILY PreserVision AREDS 4,296 mcg-226 mg-90 mg capsule 1 cap PO BID azelastine 137 mcg (0.1 %) spray,non-aerosol 1 spray intranasal Q12H 30 Days Qty: 30 2RF Rx Instructions: administer into each nostril fluticasone propionate 50 mcg/actuation spray,suspension 1 spray intranasal DAILY 30 Days Qty: 16 2RF Rx Instructions: administer into each nostril NeuroSync Brain and Focus .Route Rx Instructions: . ascorbic acid (vitamin C) 1,000 mg capsule 1 g PO DAILY escitalopram oxalate [Lexapro] 10 mg tablet 10 mg PO DAILY Qty: 90 2RF memantine 10 mg tablet 10 mg PO BID Qty: 180 3RF Rx Instructions: after 4 weeks of the titration pack furosemide 20 mg tablet 20 mg PO QHS metformin 500 mg tablet extended release 24 hr 500 mg PO QHS turmeric 400 mg capsule PO cholecalciferol (vitamin D3) 250 mcg (10,000 unit) capsule 250 mcg PO DAILY potassium chloride 10 mEq tablet,ER particles/crystals 15 meq PO DAILY Rx Instructions: Dr. Griffiths. cranberry extract 425 mg capsule 425 mg PO DAILY Rx Instructions: administer with a meal tramadol 50 mg tablet 50 mg PO Q6H PRN (Reason: pain) Qty: 30 0RF (DME) blood-glucose meter Misc See Rx Instructions .ROUTE .MEDSUPPLY Qty: 1 0RF Rx Instructions: As directed (DME) pen needle, diabetic [TechLITE Pen Needle] 32 gauge x 5/32 needle See Rx Instructions .Route Qty: 100 3RF Rx Instructions: As directed (DME) Contour Next Test Strips Strip See Rx Instructions .ROUTE .MEDSUPPLY Qty: 100 8RF Rx Instructions: test twice daily (DME) lancets Misc See Rx Instructions .ROUTE .MEDSUPPLY Qty: 100 0RF Rx Instructions: use to test sugar BID mycophenolic acid 180 mg tablet 180 mg BYMOUTH BID Rx Instructions: Dr. Flor Anderson Rheumatology metoprolol succinate 50 mg tablet extended release 24 hr 75 mg PO DAILY Rx Instructions: Dr. Griffiths albuterol sulfate 90 mcg/actuation HFA aerosol inhaler 2 inh inhalation Q4H PRN (Reason: shortness of breath or wheezing) Qty: 8.5 0RF glimepiride 1 mg tablet 1 mg PO QAM Qty: 90 0RF donepezil 10 mg tablet 10 mg PO QHS Qty: 90 0RF Follow-up/Referrals: Janina Cruz PA-C [Primary Care Provider, Family Practice] - 06/24/25 Time of Disposition: 18:44
[2025-06-23 18:35] VITALS: BP 148/59; PULSE 91; RESP 16; TEMP 36.9; O2SAT 96
== END 2025-06-23 18:50 | disposition home or self-care (01) ==
PROVIDERS: Emergency Provider Registered Nurse; PCP Physician Assistant Medical
DX: L03.116 Cellulitis of left lower limb (principal); L03.115 Cellulitis of right lower limb; R60.9 Edema, unspecified; E78.5 Hyperlipidemia, unspecified; I10 Essential (primary) hypertension; E11.9 Type 2 diabetes mellitus without complications; Z86.73 Personal history of transient ischemic attack (TIA), and cerebral infarction without residual deficits
CPT/HCPCS: 99213; G0463